=== PATIENT | female | born 1965 | race Caucasian/White ===

== ENCOUNTER → 2016-09-19 10:39 | Outpatient (CLI) | payer MEDICAID ==
[2016-06-05 15:31] VITALS: BMI 32.8
[~2016-09-19 10:39] MED LIST: ALBUTEROL2.5 MG/0.5 UPD; AMITRIPTYLINE100 MG PO; BAYER CHEWABLE81 MG PO; BENADRYL25 M1 PO; BENADRYL25 MG PO; BUTALB-ACETAMI1 EAC1 PO; BUTISOL SODIUM PO; CITRATE OF MAG300 ML PO; COUMADIN10 MG PO; COUMADIN2 MG PO; COUMADIN7.5 MG PO; DULCOLAX10 MG/SUPP RC; FLEXERIL10 MG PO; GLUCOPHAGE500 MG PO; LASIX20 MG PO; MOBIC7.5 MG PO; MUCINEX600 MG PO; NORCO 10/325 TA1 TA1 PO; PHENERGAN25 M1 PO; REQUIP1 MG PO; VENTOLIN HFA18 GM INH; XANAX0.5 MG PO; ZEBETA10 MG PO; ZIAC 10/6.25 MG1 TAB PO; [UNRECOGNIZED DRUG - OTHER]; [UNRECOGNIZED DRUG - OTHER]
== END ==
LOC: D.MRI 09-16 08:30
DX: R51 Headache (principal)

== ENCOUNTER 2016-12-13 14:52 | Observation (INO) | payer MEDICAID ==
[~2016-12-13] VITALS: Ht 165.1 cm; Wt 90.0 kg
--- NOTE | ~2016-12-13 | DS ---
PATIENT:MARSHA PEREZ :61 MEDICAL RECORD: [id number] DISCHARGE SUMMARY ADMISSION DATE: 12/13/16 DISCHARGE DATE: 12/14/16 DISCHARGE SUMMARY PROBLEM LIST: 1. Unstable angina. 2. Coronary artery disease. 3. PTCA stent LAD diagonal this admission. 4. Hyperlipidemia. 5. Hypertension. 6. Smoking history. 7. Noninsulin dependent diabetes. HOSPITAL COURSE: The patient presented with unstable angina. She was found to have significant disease of the left anterior descending diagonal and underwent successful percutaneous transluminal coronary angioplasty stent of the left anterior descending diagonal. POSTOPERATIVE COURSE: She was discharged home with the addition of Plavix to her medical regimen, no aspirin, and to continue her Coumadin. She will follow up with [facility] in one month. LAZARA BREEN MD CC: [id number] DICTATION DATE: 12/14/16 1500 LICENSED SURVEYOR: FLORENCE 12/16/16 1152 DIS IN 12/14/16 [facility] [address] [place] [address]
--- NOTE | ~2016-12-13 | OP ---
PATIENT NAME: MARSHA PEREZ MEDICAL RECORD: [id number] :61 LOCATION:D.M2 D.2116 ADMISSION DATE:12/13/16 SURGEON: LAZARA BREEN MD OPERATION DATE: 12/14/16 PROCEDURES: 1. PTCA stent LAD. 2. Left heart catheterization. 3. Selective coronary angiography. 4. Left ventriculogram. INDICATION: 1. Angina. 2. Coronary artery disease. PROCEDURE IN DETAIL: After informed consent was obtained and after detailed explanation of risks, benefits, as well as alternative therapies, the patient elected to proceed with angiogram and angioplasty. The right femoral area was prepped and draped in a normal sterile fashion. The right femoral artery was cannulated via modified Seldinger technique with placement of 6-Arabic sheath. All catheters exchanged through this sheath. FINDINGS: Left ventriculogram is performed in standard 30 degree ALBA view, reveals good cardiac wall motion throughout all segments. Overall ejection fraction 55%. SELECTIVE CORONARY ANGIOGRAPHY: 1. Left main is with no significant angiographic disease. 2. The left anterior descending has a previously placed stent proximally but no significant restenosis, however, there is a very large diagonal system that is as large or larger than the left anterior descending and there is 75% stenosis in this. 3. The left circumflex has mild irregularities but no flow-limiting stenosis. 4. The right coronary artery has mild irregularities but no flow-limiting stenosis. PTCA STENT OF THE LEFT ANTERIOR DESCENDING DIAGONAL: The stent used was a 2.5 X 18 millimeter BioFreedom stent. This was a 15 millimeter lesion and a 2.5 vessel. MEERA 3 flow before and after the intervention. There was 0% residual stenosis after the intervention. OVERALL IMPRESSION: Successful percutaneous transluminal coronary angioplasty stent of the left anterior descending diagonal going from 75% initial stenosis to 0% residual stenosis. LAZARA BREEN MD CC: [id number] DICTATION DATE: 12/14/16 1500 COMPUTER SYSTEMS TECHNICIAN: DM 12/16/16 1128 DIS IN 12/14/16 [id number] [place] [address]
--- NOTE | ~2016-12-13 | HEMODYNAMI ---
PATIENT:MARSHA PEREZ MEDICAL RECORD: [id number] : 61 LOCATION:[facility] D.2116 ADMISSION DATE: 12/13/16 Generatedon:12/14/201611:47 Patient name: MARSHA PEREZ Patient #: [id number] SSN: : 1965 Date of study: 12/14/2016 Page: Of Hemodynamic Procedure Report Patient Data Patient Demographics Procedure consent was obtained First Name: MARSHA Gender: Female Last Name: CHRIS : 1965 [facility] Initial: C Age: 51 year(s) Patient #: [id number] Race: Additional ID: [id number] Contact details Address: [address] [address] State: [place] City: [place] Zip code: [address] Admission Admission Data Admission Date: 12/13/2016 Admission Time: 16:18 Room #: D.2116 Height (in.): 65 BSA: 1.97 (m2) Height (cm.): 165.1 BMI: 33.02 (kg/m2) Weight (lbs.): 198.42 Weight (kg.): 90 Lab Results Lab Result Date: 12/14/2016 Lab Result Time: 0:00 Biochemistry Name Units Result Min Max BUN mg/dl 19 --(----)*- 7 18 CK-MB ng/ml 1.5 --(-*--)-- 0 3.6 Creatinine mg/dl 1 --(--*-)-- 0.6 1.3 Troponin l ng/ml 0.017 --(-*--)-- 0 0.06 CBC Name Units Result Min Max Hemoglobin g/dl 13.7 --(*---)-- 13.5 17.5 Coagulation Name Units Result Min Max INR units 1.19 --(----)*- 0.85 1.17 PT sec 15 --(---*)-- 11.6 15 Procedure Procedure Types Cath Procedure Diagnostic Procedure [facility] w/Coronaries PCI Procedure Coronary Stent Initial Miscellaneous Procedures Moderate Sedation up to 15 minutes Procedure Description Procedure Date Procedure Date: 12/14/2016 Procedure Start Time: 11:26 Procedure End Time: 11:47 Procedure Staff Name Function Oz Birch MD Performing Physician Andrzej Ospina RT Scrub Senthil Gill RN Nurse Zen Solis RT Monitor Procedure Data Cath Procedure Fluoroscopy Diagnostic fluoroscopy Total fluoroscopy Time: 2.2 time: 2.2 min min Diagnostic fluoroscopy Total fluoroscopy dose: 514 dose: 514 mGy mGy Contrast Material Contrast Material Type Amount (ml) Isovue 300 95 Entry Location Entry Primary Successful Side Size Upsize Upsize Entry Closure Succes sful Closure Location (Fr) 1 (Fr) 2 (Fr) Remarks Device Remarks Femoral Right 6 Fr Exoseal artery Short Estimated blood loss: 10 ml Diagnostic catheters Device Type Used For End Catheter Placement Cordis 5Fr Pigtail Procedure Catheter (MP) Cordis 5Fr JL 4.0 Procedure Catheter (MP) Cordis 5Fr 3DRC Catheter Procedure (MP) Procedure Complications No complications Procedure Medications Medication Administration Route Dosage Oxygen NC 2 l/min Lidocaine 2% added to field 20 Heparin Flush Bag added to field 2 bags (1000units/500ml NS) 0.9% NaCl I.V. 100 ml/hr Zofran I.V. 4 mg Versed I.V. 1 mg Dilaudid I.V. 1 mg Heparin Bolus I.V. 4000 units Integrilin (Bolus I.V. 7.9 ml 2mg/ml) Versed I.V. 1 mg Dilaudid I.V. 1 mg Plavix P.O. 600 mg Hemodynamics Rest BSA: 1.97 (m2) HGB: 13.7 (g/dl) O2 Consumption: Estimated: 188.48 (ml/min) O2 Co nsumption indexed: Estimated:95.68 (ml/min/m) Heart Rate: 67 (bpm) Snapshots Pre Cath Intra NCS Post Cath Vital Signs Time Heart Resp SPO2 etCO2 [id number] NIBP (mmHg) Rhythm Pain Sedation Rate (ipm) (%) (mmHg) (mmHg) Status Level (bpm) 11:17:48 69 23 95 0 0 134/76(104) NSR 0 (11) 10(A) , No pain 11:22:06 68 15 94 0 0 143/80(106) NSR 0 (11) 10(A) , No pain 11:26:22 67 16 95 0 0 118/77(103) NSR 0 (11) 9(A) , No pain 11:30:36 70 16 96 0 0 129/73(109) NSR 0 (11) 9(A) , No pain 11:34:48 72 17 95 0 0 126/74(103) NSR 0 (11) 9(A) , No pain 11:39:04 70 16 94 0 0 133/75(107) NSR 0 (11) 10(A) , No pain 11:41:47 74 17 93 0 0 122/69(89) NSR 0 (11) 10(A) , No pain 11:45:47 0 0 No Cuff NSR 0 (11) 10(A) , No pain Medications Time Medication Route Dose Verified Delivered Reason Not es Effectiveness by by 11:15:31 Oxygen NC 2 l/min Oz Buffie used for Queta Gill RN procedure 11:16:37 Lidocaine 2% added 20ml Oz Oz for local to vial Queta Birch MD anesthetic field 11:16:43 Heparin Flush added 2 bags Oz Oz used for Bag to Queta Birch MD procedure (1000units/500ml field NS) 11:16:53 0.9% NaCl I.V. 100ml/hr Oz Ndiaye Per physician Queta Gill RN 11:18:01 Zofran I.V. 4 mg Oz Ndiaye Per physician Queta Gill RN 11:20:00 Versed I.V. 1 mg Oz Ndiaye for sedation Queta Gill RN 11:21:12 Dilaudid I.V. 1 mg Oz Buffjoni for sedation Queta Gill RN 11:25:46 Versed I.V. 1 mg Oz Buffie for sedation Queta Gill RN 11:26:51 Dilaudid I.V. 1 mg Oz Buffjoni for sedation Queta Gill RN 11:30:23 Heparin Bolus I.V. 4000 Oz Buffie for luda ified units Queta Gill RN anticoagulation with dr birch 11:33:06 Integrilin I.V. 7.9 ml Oz Buffie for Was ruth ann (Bolus 2mg/ml) Queta Gill RN antiplatelet 2.1 ml therapy of vial 11:40:43 Plavix P.O. 600 mg Oz Gill RN antiplatelet therapy Procedure Log Time Note 10:35:34 Zen Solis RT(R) sent for patient. Start room use. 10:56:30 ACC Patient presents with Unstable Angina CCS Anginal Class 3--Marked limitation of physical activity, angina occurs with ordinary activity.. 10:56:32 Diagnostic Cath status Urgent 10:56:42 Time tracking: Regular hours 10:56:46 Plan of Care:Hemodynamics will remain stable., Cardiac rhythm will remain stable., Comfort level will be maintained., Respiratory function will remain adequate., Patient/ family verbilizes understanding of procedure., Procedure tolerated without complication., Recovers from procedure without complications.. 11:06:21 Patient received from PCU to CCL 1 Alert and oriented. Tansferred to table in Supine position. 11:06:22 Correct patient and procedure confirmed by team. 11:06:22 Warm blankets applied, and zane hugger turned on for patient comfort. 11:06:23 Signed procedure consent form obtained from patient. 11:06:24 ECG and BP/O2 sat monitors applied to patient. 11:15:31 Oxygen 2 l/min NC was administered by Senthil Gill RN; used for procedure; 11:16:35 Signed procedure consent form obtained from patient. 11:16:37 Lidocaine 2% 20ml vial added to field was administered by Oz Birch MD; for local anesthetic; 11:16:39 Vital chart was started 11:16:43 Heparin Flush Bag (1000units/500ml NS) 2 bags added to field was administered by Oz Birch MD; used for procedure; 11:16:44 Baseline sample Acquired. 11:16:48 Rhythm: sinus rhythm 11:16:50 Full Disclosure recording started 11:16:53 0.9% NaCl 100ml/hr I.V. was administered by Senthil Gill RN; Per physician; 11:17:37 H&P Date Dictated: 12/13/2016 H&P Addendum completed by physician on day of procedure. (MUST COMPLETE FOR ALL OUTPATIENTS). 11:17:45 Pre-procedure instructions explained to patient. 11:17:46 Pre-op teaching completed and patient verbalized understanding. 11:17:47 Family in waiting room. 11:17:49 Patient NPO since Midnight. 11:17:51 Is the patient allergic to Iodine/contrast media? No. 11:18:01 Zofran 4 mg I.V. was administered by Senthil Gill RN; Per physician; 11:18:18 Is patient on blood thinner?No 11:18:27 Patient diabetic? Yes. 11:18:30 If diabetic: On Metformin? Yes 11:18:34 If on Metformin: Last Dose? 12/10/2016 11:18:38 Previous problem with sedation/anesthesia? No ? 11:18:43 Snore? Yes 11:18:44 Sleep apnea? No 11:18:45 Deviated septum? No 11:18:46 Opens mouth fully? Yes 11:18:47 Sticks out tongue? Yes 11:18:48 Airway obstruction? No ? 11:18:54 Dentures? Yes IN 11:19:03 Pre procedure: right dorsailis pedis pulse 1+ Palpable, but thready & weak; easily obliterated 11:19:19 Pt opted for Femoral approach. 11:19:23 Patient pain scale 0/10 ?. 11:19:30 IV patent on arrival in right antecubital with 0.9% NaCl at [facility]. 11:19:32 Lab results completed and on chart. 11:19:36 Right groin area was prepped with chlora-prep and draped in sterile fashion 11:19:37 Alarms reviewed by R. N. 11:19:38 Sharps counted by scrub and verified by R.N. 11:19:40 --------ALL STOP TIME OUT------ 11:19:40 Final Timeout: patient, procedure, and site verified with staff and physician. All members of the team are in agreement. 11:19:42 Right groin site verified by team. 11:19:46 Physical assessment completed. ASA score P 2 - A patient with mild systemic disease as per Oz Birch MD. 11:19:49 Sedation plan: IV Moderate Sedation Versed, Fentanyl 11:20:00 Versed 1 mg I.V. was administered by Senthil Gill RN; for sedation; 11:21:12 Dilaudid 1 mg I.V. was administered by Senthil Gill RN; for sedation; 11:25:04 Use device set Femoral Dx 11:25:07 Acist Hand Control opened to sterile field. 11:25:07 Acist Manifold opened to sterile field. 11:25:09 Acist Syringe opened to sterile field. 11:25: Bag Decanter opened to sterile field. 11:25:09 Medline Cath Pack opened to sterile field. 11:25:10 St Abundio 260cm J .035 wire opened to sterile field. 11:25:11 Diagnostic Infinity 5Fr Multipack catheter opened to sterile field. 11:25:19 Terumo 6Fr [place] Sheath opened to sterile field. 11:25:46 Versed 1 mg I.V. was administered by Senthil Gill RN; for sedation; 11::51 Dilaudid 1 mg I.V. was administered by Senthil Gill RN; for sedation; 11::51 Procedure started. 11:26:56 Local anesthetic to right femoral artery with Lidocaine 2% by Oz Birch MD.INITIAL ACCESS ONLY 11:27:32 A 6 Fr Short sheath was inserted into the Right Femoral artery 11:27:55 A Cordis 5Fr Pigtail Catheter (MP) was advanced over the wire and used for Procedure. 11:28:13 LV angiography performed. 11:28:15 LV gram done using ALBA 11:28:22 EF : 60 % 11:28:27 Injector settings: Ml/sec: 10, Volume: 20, 11:28:29 Catheter removed. 11:28:56 A Cordis 5Fr JL 4.0 Catheter (MP) was advanced over the wire and used for Procedure. 11:29:31 LCA angiography performed. 11:30:23 Heparin Bolus 4000 units I.V. was administered by Senthil Gill RN; for anticoagulation; verified with dr birch 11:30:58 Catheter removed. 11:31:04 A Cordis 5Fr 3DRC Catheter (MP) was advanced over the wire and used for Procedure. 11:31:09 RCA angiography performed. 11:31:10 Catheter removed. 11:31:22 CyberArts BasixCompak Inflation Kit opened to sterile field. 11:31:25 Morales Whisper J 300cm 0.014 guide wire opened to sterile field. 11:32:11 Cordis 6FR XBLAD 3.5 guide catheter opened to sterile field. 11:32:31 ACC PCI Site: Diag1 has 75% stenosis. 11:32:33 ACC Pre-intervention MEERA Flow is 3. 11:32:39 6 Fr XBLAD 3.5 guide catheter was inserted over the wire 11:33:06 Integrilin (Bolus 2mg/ml) 7.9 ml I.V. was administered by Senthil Gill RN; for antiplatelet therapy; Wasted 2.1 ml of vial 11:33:13 Whisper wire advanced. 11:34:11 Wire advanced across lesion. 11:35:01 Inflation Number: 1 A Biofreedom 2.5 x 18 stent (No Cost Implant) was prepped and advanced across the 1st Diag. The stent was deployed at 13 TARIQ for 0:10 (min:sec). 11:35:32 ACC Post-intervention MEERA Flow is 3. 11:35:33 Stent catheter was removed intact over wire. 11:35:34 Wire removed. 11:35:34 Guide catheter removed. 11:36:00 Cordis 6Fr Exoseal opened to sterile field. 11:36:11 Sheath removed intact; hemostasis achieved with Exoseal to the Right Femoral artery. 11:36:16 Procedure ended.(Physican Out) 11:39:26 Fluoroscopy time 02.20 minutes. 11:39:36 Fluoroscopy dose: 514 mGy 11:39:36 Flurop Dose total: 514 11:39:41 Contrast amount:Isovue 300 95ml. 11:39:42 Sharps counted by scrub and verified by R.N. 11:39:45 Insertion/operative site no bleeding no hematoma. 11:39:48 Post-op/insertion site Right Femoral artery dressed using a Bandaid. 11:39:50 Post Procedure Pulses reassessed and unchanged 11:39:52 Post-procedure physical assessment completed. ASA score P 2 - A patient with mild systemic disease as per Oz Birch MD. 11:39:55 Post procedure rhythm: unchanged. 11:39:58 Estimated blood loss: 10 ml 11:40:00 Post procedure instruction explained to patient.Patient verbalizes understanding. 11:40:01 Patient needs reinforcement of post procedure teaching. 11:40:13 Procedure type changed to Cath procedure, Diagnostic procedure, LHC, LHC w/Coronaries, PCI procedure, Coronary Stent Initial, Miscellaneous Procedures, Moderate Sedation up to 15 minutes 11:40:15 Procedure and supply charges have been captured, reviewed, submitted and are correct. 11:40:18 Procedure Complication : No complications 11:40:43 Plavix 600 mg P.O. was administered by Senthil Gill RN; for antiplatelet therapy; 11:45:54 Lab Result : BUN 19 mg/dl 11:45:54 Lab Result : Troponin l 0.017 ng/ml 11:45:54 Lab Result : Hemoglobin 13.7 g/dl 11:45:54 Lab Result : Creatinine 1 mg/dl 11:45:54 Lab Result : CK-MB 1.5 ng/ml 11:45:54 Lab Result : INR 1.19 units 11:45:54 Lab Result : PT 15 sec 11:46:52 Patient Height : 65 cm 11:46:56 Patient Weight : 198.42 kg 11:47:07 Vital chart was stopped 11:47:07 See physician's report for complete and final results. 11:47:20 Report given to PCU. 11:47:26 Patient transfered to PCU with Bed. 11:47:29 Procedure ended. 11:47:29 Full Disclosure recording stopped 11:47:33 End room use (Document Last) Intervention Summary Intervention Notes Time ActionType Lesion and Equipment Action# Pressure Duration Attributes Used 11:35:[address] Place stent 1st Diag Biofreedom 1 13 00:10 2.5 x 18 stent (No Cost Implant) Device Usage Item Name Manufacture Quantity Catalog Hospital Part Current Minimal Lot# / Number Charge Number Stock Stock Serial# Code Acist Hand Acist 1 52879 [id number] [id number] [id number] 5 Control Medical Systems Inc Acist Acist 1 70110 686521 968421 390667 5 Manifold Medical Systems Inc Acist Acist 1 81012 823808 449265 214221 20 Syringe Medical Systems Inc Bag Microtek 1 2002S 755063 81900 932547 5 MedSolutions Inc. Medline Cardinal 1 [id number] 369418 59015 996518 [address] Abundio 1 113902 457230 522976 068560 30 260cm J .035 wire Diagnostic Cardinal 1 [id number] 162884 13459 631254 30 PlanStanity Health 5Fr Multipack catheter Terumo 6Fr Terumo 1 [id number] 844905 404356 363289 40 [place] Sheath Cordis 5Fr Cardinal 1 593508 5 Pigtail Health Catheter (MP) Cordis 5Fr Cardinal 1 320051 5 JL 4.0 Health Catheter (MP) Cordis 5Fr Cardinal 1 662081 5 3DRC Health Catheter (MP) [facility] 1 JY2441 770279 686716 639824 15 BasixCompak Medical Inflation Kit Morales Morales 1 [id number] 694942 373859 818563 5 Whisper J Vascular 300cm 0.014 guide wire Cordis 6FR Cardinal 1 [id number] 108985 192691 811249 10 XBLAD 3.5 Health guide catheter Biofreedom Biosensors 1 [facility]2-9768 861578 482701 5 [id number] 2.5 x 18 [place] SA stent (No Cost Implant) Cordis 6Fr Cardinal 1 EX600 418641 104788 447490 10 [facility] Citymapper Limited Signature Audit Red Bud Stage Time Signature Unsigned Intra-Procedure 12/14/2016 Zen Solis 11:47:50 AM RT(R) Signatures Monitor : Zen Solis RT Signature : Date : Time : [address] [address]
--- NOTE | ~2016-12-13 | HP ---
PATIENT: MARSHA PEREZ MEDICAL RECORD: [id number] ACCOUNT: [id number] LOCATION:[address] : [birth year] ADMISSION DATE: 12/13/16 HISTORY AND PHYSICAL EXAMINATION PROBLEM LIST: 1. Angina. 2. Coronary artery disease. 3. Previous percutaneous transluminal coronary angioplasty stent. 4. Coumadin anticoagulation. 5. Noninsulin dependent diabetes. 6. Hypertension. HISTORY OF PRESENT ILLNESS: This is a 51-year-old female with a past history of coronary artery disease with percutaneous transluminal coronary angioplasty stent approximately three to four years ago who presents with two days of crushing chest pain. She continued to have the chest pain here. It is just like that of her previous angina. Her troponin is normal. Her electrocardiogram is with nonspecific ST-T abnormalities. PHYSICAL EXAMINATION: HEAD, EYES, EARS, NOSE, AND THROAT: Benign. NECK: Supple. No jugular venous distention. Carotid upstroke plus two bilaterally without bruits. LUNGS: Overall clear to auscultation and percussion. HEART: Regular. Normal S1, normal S2. No S3, no S4. No murmurs. BONES, JOINTS, EXTREMITIES: No clubbing, cyanosis, or edema. OVERALL IMPRESSION: Chest pain compatible with angina escalated in an unstable fashion. We will check a PT/INR and proceed with coronary angiography when the PT/INR is lowered. LAZARA BREEN MD CC: [id number] DICTATION DATE: 12/14/16 1500 HIV/AIDS CARE NURSE: DM 12/16/16 1135 DIS IN 12/14/16 [facility] [address] [id number]
[~2016-12-13 14:52] MED LIST changes: +CYCLOBENZAPRINE10 MG PO; -FLEXERIL10 MG PO; +HYDROCODONE-APA1 TAB PO; -NORCO 10/325 TA1 TA1 PO
[2016-12-13 15:38] LABS: BASOPHILS 0.5 % (0-2); EOSINOPHILS 3.8 % (0-7); HEMATOCRIT 39.9 % (36.0-48.0); HEMOGLOBIN 13.7 g/dL (12-16); IMMATURE GRANULOCYTES 0.1 % (0-5); LYMPHOCYTES 42.1 % (15-50); MCH 32.1 pg (26.0-34.0); MCHC 34.3 g/dL (31.0-37.0); MCV 93.4 fL (80.0-100.0); MEAN PLATELET VOLUME 11.4 fL (7.4-10.4); MONOCYTES 6.8 % (2-11); NEUTROPHILS 46.7 % (40-80); PLATELET COUNT 232 10x3/uL (130-400); RBC 4.27 10x6/uL (4.00-5.40); RDW 12.8 % (11.5-14.5); WBC 8.8 10x3/uL (4.8-10.8)
[2016-12-13 15:52] LABS: ALBUMIN 4.1 g/dL (3.4-5.0); ALKALINE PHOSPHATASE 115 U/L (46-116); ALT (SGPT) 41 U/L (10-68); BILIRUBIN - TOTAL 0.56 mg/dL (0.2-1.3); CALC OSMOLALITY 285 mosm/kg (275-300); CALCIUM 9.1 mg/dL (8.5-10.1); CARBON DIOXIDE 24.8 mmol/L (21.0-32.0); CHLORIDE - SERUM 104 mmol/L (98-107); GLUCOSE 147 mg/dL (74-106); PROTEIN - SERUM 8.6 g/dL (6.4-8.2); SODIUM 141 mmol/L (136-145); UREA NITROGEN 19 mg/dL (7-18); eGFR NON AFRICAN AMERICAN 61 mL/min (90-120)
[2016-12-13 16:03] LABS: CKMB 1.5 U/L (0.0-3.6); CREATINE KINASE 104 UL (21-215)
[2016-12-13 16:04] LABS: TROPONIN-I < 0.017 ng/mL (0.000-0.060)
--- NOTE | 2016-12-13 18:06 | NUR ---
PT RECEIVED TO ROOM 2115 VIA STRETCHER, PT AMBULATED TO BED, STEADY GATE. PT ORIENTED TO ROOM AND CALL LIGHT, PT STATES THAT SHE IS STILL HAVING CHEST PAIN, FEELINGS LIKE AN ELEPHANT IS SITTING ON HER CHEST. PAGED DR. BREEN FOR ORDERS FOR PAIN MED. NS STARTED INFUSING AT 50CC/HR TO RIGHT AC. PT DENIES ANY OTHER NEEDS AT THIS TIME. CALL LIGHT IN REACH, DAUGTHER AT BEDSIDE, NAD NOTED, WILL CONTINUE TO MONITOR.
--- NOTE | 2016-12-13 18:38 | NUR ---
RECEIVED CALL BACK FROM DR. BREEN. INFORMED HIM THAT PT IS STILL HAVING CHEST PAIN AND NO PAIN MEDS ORDER. INFORMED HIM ABOUT PT'S ALLERGIES. DR. BREEN STATED TO ORDER DEMEROL 50MG Q4HPRN.
[2016-12-13] MEDS ORDERED: OMEPRAZOLE40 MG PO (18:49)
[2016-12-13 20:00] VITALS: BP 104/61
--- NOTE | 2016-12-13 20:30 | NUR ---
PT STATES USUALLY SHE TAKES METFORMIN AT NIGHT. EXPLAINED TO PT WE WOULD HOLD THE METFORMIN TONIGHT UNTIL DR BREEN EVALUATED HER CHEST PAIN. PT VERBALIZED UNDERSTANDING, BUT WAS CONCERNED HER GLUCOSE WOULD ELEVATE TO > 600. PT STARTED ON ACCU CHECKS AC/HS. GLUCOSE NOW 196. PT STATES SHE WAS NOT HUNGRY RIGHT NOW AND DID NOT WANT INSULIN TONIGHT. WILL CONT TO MONITOR.
[2016-12-13 22:25] VITALS: Ht 165.1 cm; Wt 90.0 kg
[2016-12-14] VITALS: BP 103/56
[2016-12-14 04:00] VITALS: BP 99/62
[2016-12-14 08:04] VITALS: BP 99/58
[2016-12-14 09:12] LABS: INR 1.19 (0.85-1.17)
--- NOTE | 2016-12-14 09:27 | NUR ---
TELEMETRY SR. CONSENTS SIGNED FOR [facility]. PRE-OPS GIVEN. WILL CONT. PLAN OF CARE.
--- NOTE | 2016-12-14 11:00 | NUR ---
PRE-OPS GIVEN. TO MD PSYCHIATRY BY BED.
[2016-12-14 12:00] VITALS: BP 128/68
--- NOTE | 2016-12-14 12:03 | NUR ---
BACK FROM labor mediator. VS WNL. RIGHT GROIN STABLE WITHOUT BLEEDING OR HEMATOMA NOTED. WILL MONITOR.
--- NOTE | 2016-12-14 12:12 | NUR ---
FEMSTOP DCD WITHOUT BLEEDING OR HEMATOMA NOTED. WILL MONITOR.
--- NOTE | 2016-12-14 15:45 | NUR ---
BED REST UP. GROIN STABLE.
[2016-12-14 16:00] VITALS: BP 143/69
[2016-12-14] MEDS ORDERED: PLAVIX75 MG PO (16:33)
--- NOTE | 2016-12-14 16:58 | NUR ---
IV AND TYELEMETRY DCD. DC PLANS GIVEN. UNDERSTANDING VOICED. ESCORTED TO CAR BY W/C.
== END 2016-12-14 17:05 | disposition home or self-care (01) ==
LOC: D.ER 14:52 → OBSVTIME 16:18 → D.M2 16:18
PROVIDERS: Emergency Medicine; ADMIT Internal Medicine Interventional Cardiology
DX: I25.110 Atherosclerotic heart disease of native coronary artery with unstable angina pectoris (principal); Z95.5 Presence of coronary angioplasty implant and graft; Z86.718 Personal history of other venous thrombosis and embolism; Z79.01 Long term (current) use of anticoagulants; Z72.0 Tobacco use; Z00.6 Encounter for examination for normal comparison and control in clinical research program

== ENCOUNTER → 2016-12-24 10:50 | Outpatient (CLI) | payer MEDICAID ==
[2016-12-13 22:25] VITALS: BMI 31.5
[~2016-12-24 10:50] MED LIST changes: +OMEPRAZOLE40 MG PO; +PLAVIX75 MG PO
== END | disposition home or self-care (01) ==
LOC: D.RAD 10:50
DX: M47.897 Other spondylosis, lumbosacral region (principal); G25.81 Restless legs syndrome; M25.561 Pain in right knee; M17.11 Unilateral primary osteoarthritis, right knee; M76.9 Unspecified enthesopathy, lower limb, excluding foot; G43.709 Chronic migraine without aura, not intractable, without status migrainosus; M46.92 Unspecified inflammatory spondylopathy, cervical region; G89.4 Chronic pain syndrome; Z79.899 Other long term (current) drug therapy; Z79.891 Long term (current) use of opiate analgesic

== ENCOUNTER 2017-02-18 15:47 | Observation (INO) | payer MEDICAID ==
[~2017-02-18] VITALS: Ht 165.1 cm; Wt 79.5 kg
[2017-02-18 16:06] LABS: BASOPHILS 0.3 % (0-2); EOSINOPHILS 2.4 % (0-7); HEMATOCRIT 37.9 % (36.0-48.0); HEMOGLOBIN 12.8 g/dL (12-16); IMMATURE GRANULOCYTES 0.1 % (0-5); LYMPHOCYTES 36.8 % (15-50); MCH 31.1 pg (26.0-34.0); MCHC 33.8 g/dL (31.0-37.0); MEAN PLATELET VOLUME 10.7 fL (7.4-10.4); NEUTROPHILS 53.4 % (40-80); PLATELET COUNT 232 10x3/uL (130-400); RBC 4.12 10x6/uL (4.00-5.40); RDW 13.3 % (11.5-14.5); WBC 9.6 10x3/uL (4.8-10.8)
[2017-02-18 16:21] LABS: ALBUMIN 3.8 g/dL (3.4-5.0); ALKALINE PHOSPHATASE 132 U/L (46-116); ALT (SGPT) 72 U/L (10-68); BILIRUBIN - TOTAL 0.26 mg/dL (0.2-1.3); CALC OSMOLALITY 281 mosm/kg (275-300); CALCIUM 8.5 mg/dL (8.5-10.1); CARBON DIOXIDE 23.8 mmol/L (21.0-32.0); CHLORIDE - SERUM 106 mmol/L (98-107); CREATININE - SERUM 0.7 mg/dL (0.6-1.3); POTASSIUM - SERUM 3.9 mmol/L (3.5-5.1); PROTEIN - SERUM 8.5 g/dL (6.4-8.2); SODIUM 142 mmol/L (136-145); UREA NITROGEN 12 mg/dL (7-18); eGFR NON AFRICAN AMERICAN > 90 mL/min (90-120)
[2017-02-18 16:23] LABS: GLUCOSE 88 mg/dL (74-106)
[2017-02-18 16:32] LABS: CHOL - HDL RATIO 4.3 ratio (2.3-4.1); CHOLESTEROL, TOTAL 190 mg/dL (0-200); CKMB 1.2 U/L (0.0-3.6); CREATINE KINASE 95 UL (21-215); HDL CHOLESTEROL 44 mg/dL (32-96); LDL CHOLESTEROL 116 mg/dL (0-100); LDL-HDL RATIO 2.6 ratio (1.5-3.5); TRIGLYCERIDE 152 mg/dL (30-200)
[2017-02-18 16:33] LABS: TROPONIN-I < 0.017 ng/mL (0.000-0.060)
[2017-02-18 17:19] LABS: INR 1.01 (0.85-1.17); PROTIME 13.2 SECONDS (11.6-15.0)
--- NOTE | 2017-02-18 20:15 | NUR ---
RECEIVED PT IN BED AAOX4 RESP UNLABORED C/O CHEST PAIN 12/16 C/O BENITEZ FROM NITRO 03/18 SKIN W/D COLOR WNL TELEMETRY SR 76 SALINE LOCK INTACT TO RAC WITH OCCLUSIVE DRSG SITE FREE OF REDNESS OR EDEMA NAD NOTED
[2017-02-18] MEDS ORDERED: KLONOPIN1 MG PO (20:41)
[2017-02-18] MEDS ORDERED: ALBUTEROL2.5 MG/3 M INH (20:42)
[2017-02-18] MEDS ORDERED: ATROVENT 0.02%2.5 ML UPD (20:43)
[2017-02-18 22:13] VITALS: BP 117/56; Ht 165.1 cm; Wt 79.5 kg
--- NOTE | 2017-02-19 02:28 | NUR ---
RESTING QUIETLY EYES CLOSED RESP UNLABORED NAD NOTED
[2017-02-19 04:00] VITALS: BP 90/42
[2017-02-19 12:00] VITALS: BP 108/69
--- NOTE | 2017-02-19 12:41 | NUR ---
ALERT AND ORIENTED X4. DC RT AC IV TIP INTACT. DISCHARGE INSTRUCTIONS GIVEN VERBALLY AND WRITTEN. DISCHARGE PAPERS SIGNED ON CHART. ESCORT TO RIDE VIA WHEELCHAIR. REMAINS FREE FROM INJURY.
--- NOTE | 2017-02-20 12:22 | DS ---
PATIENT:MARSHA PEREZ :61 MEDICAL RECORD: [id number] DISCHARGE SUMMARY ADMISSION DATE: 02/18/17 DISCHARGE DATE: 02/19/17 DISCHARGE DIAGNOSES: 1. Noncardiac chest pain. 2. Coronary artery disease. 3. Previous percutaneous transluminal coronary angioplasty stent. 4. Gastroesophageal reflux disease. HOSPITAL COURSE: Ms. Perez had chest pain after throwing up. Her troponin is normal. Her EKGs were normal. She continued to have the chest pain and became positional. She has had a history of a pulled muscle after throwing up in the past with the chest pain now being positional, sharp to touch, it is noncardiac in etiology. No other cardiac workup or treatment is necessary at this time. TRANSINT:[id number] Voice Confirmation ID: [id number] DOCUMENT ID: [id number] LAZARA BREEN MD at 1222 CC: [id number] DICTATION DATE: 02/19/17 1031 RF ENGINEER: 02/20/17 0014 DEP CLI 02/19/17 [address] [place] [address]
--- NOTE | 2017-02-20 12:22 | HP ---
PATIENT: MARSHA PEREZ MEDICAL RECORD: [id number] ACCOUNT: [id number] LOCATION:[facility] : 61 ADMISSION DATE: 02/18/17 HISTORY AND PHYSICAL EXAMINATION ADMITTING DIAGNOSES: 1. Chest pain. 2. Gastroesophageal reflux disease. 3. Nausea and vomiting. 4. Gastroenteritis. 5. Coronary artery disease. 6. Previous percutaneous transluminal coronary angioplasty stent. HISTORY OF PRESENT ILLNESS: Mrs. Perez presents with chest pain. Her chest pain; however, is different than that of her previous angina. Her chest pain came on her after throwing up, is more like her GERD pain. She continues to have the chest pain, is quite severe. Her EKG is with no changes. Last cardiac stenting was approximately 2 months ago. PHYSICAL EXAMINATION: GENERAL APPEARANCE: Well-nourished, well-developed, appears stated age. Level of distress, comfortable. PSYCHIATRIC: Mental status, alert, normal affect. Orientation, oriented to time, place and person. EYES: Lids and conjunctiva, noninjected. No discharge, no pallor. ENT: Lips, teeth, gums, normal dentition. Oropharynx, no cyanosis, no pallor. NECK: Carotid arteries, bilateral normal upstroke, no bruits, no thrills. JUGULAR VEINS: No jugular venous pressure or distention. CERVICAL LYMPH NODES: Nontender, nonenlarged. THYROID: Not enlarged. Nontender. No nodules. LUNGS: Respiratory effort, unlabored. CHEST: Normal curvature. No thoracic deformity. No chest wall tenderness. Percussion, resonant. Auscultation, clear. No wheezes, no rales, no rhonchi. CARDIOVASCULAR: Precordial exam, nondisplaced. No heaves or pericardial thrills. Rate and rhythm, regular. Heart sounds, normal S1, normal S2. No S3, no gallop, no rub. Systolic murmur, not heard. Diastolic murmur, not heard. EXTREMITIES: No cyanosis, no edema. Peripheral pulses, full and equal in all extremities, except as noted. No bruits appreciated. ABDOMEN: Soft, nondistended. Normal aorta. No bruit. Nontender. No masses. Liver, nontender, no hepatomegaly. Spleen, nontender, no splenomegaly. MUSCULOSKELETAL: No joint tenderness. No joint swelling. No erythema. NEUROLOGICAL: Normal gait, normal strength, normal tone. SKIN: Warm and dry. REVIEW OF SYSTEMS: The patient reports easy bruising but reports no swollen glands. The patient reports no fever, no night sweats, no significant weight gain, no significant weight loss. No significant exercise tolerance. The patient reports no dry eyes, no irritation, no vision change. Patient reports no difficulty hearing and no ear pain. Patient reports no frequent nose bleeds or nose and sinus problems. Patient reports on arm pain on exertion. No shortness of breath while lying down. No history of heart murmur. Patient reports no cough, no wheezing or coughing up blood. Patient reports no abdominal pain, no vomiting. Normal appetite. No diarrhea and not vomiting blood. No nausea and no constipation. Patient reports no incontinence. No difficulty urinating. No hematuria. No increased frequency. Patient reports HISTORY AND PHYSICAL [id number] MARSHA PEREZ no muscle aches. No weakness, no arthralgias, no back pain. No swelling of the extremities. Patient reports no abnormal mole, no jaundice, no rashes. Reports no loss of consciousness. No weakness and no numbness. No seizures, dizziness, or headaches. The patient reports no depression, no sleep disturbance, feeling safe in a relationship and no alcohol abuse. Patient reports on fatigue. Reports no runny nose or sinus pressure. No itching, no hives, and no frequent sneezing. OVERALL IMPRESSION: Chest pain is most likely GI in etiology from throwing up, doubt that this is cardiac in etiology. We will check a troponin in the morning, but do gastrointestinal directed therapy at this time. TRANSINT:[id number] Voice Confirmation ID: [id number] DOCUMENT ID: [id number] LAZARA BREEN MD at 1222 CC: [id number] DICTATION DATE: 02/18/17 1639 [employer]IATE: 02/18/17 1740 DEP CLI 02/19/17 [id number] [place] [address]
== END 2017-02-19 13:00 | disposition home or self-care (01) ==
LOC: D.M2 15:47 → D.OPS 15:47 → D.ER 15:47 → D.M2 16:38 → OBSVTIME 16:38 → EDSTATUS 17:33 → D.OPS 17:34 → D.M2 17:34 → D.OPS 02-19 13:00 → D.M2 02-19 13:00 → EDSTATUS 02-21 16:01
PROVIDERS: Emergency Medicine; ADMIT Internal Medicine Interventional Cardiology
DX: R07.89 Other chest pain (principal); I25.10 Atherosclerotic heart disease of native coronary artery without angina pectoris; K21.9 Gastro-esophageal reflux disease without esophagitis; Z95.5 Presence of coronary angioplasty implant and graft; I10 Essential (primary) hypertension; K52.9 Noninfective gastroenteritis and colitis, unspecified

== ENCOUNTER → 2017-06-17 10:40 | Outpatient (CLI) | payer MEDICAID ==
[2017-02-18 22:13] VITALS: BMI 29.1
[~2017-06-17 10:40] MED LIST changes: +ALBUTEROL2.5 MG/3 M INH; +ASPIRIN EC81 M1 PO; +ATROVENT 0.02%2.5 ML UPD; +BUTALBITAL-ASP-1 CAP PO; -COUMADIN7.5 MG PO; +DILAUDID2 MG PO; +KLONOPIN1 MG PO; +ZANTAC150 MG PO; +ZIAC 10-6.25 MG1 TAB PO
== END | disposition home or self-care (01) ==
LOC: D.MRI 10:40
DX: M25.561 Pain in right knee (principal)

== ENCOUNTER 2017-07-01 05:29 | Day surgery (SDC) | payer MEDICAID ==
[2017-06-30 15:32] LABS: BASOPHILS 0.3 % (0-2); EOSINOPHILS 2.6 % (0-7); HEMATOCRIT 34.4 % (36.0-48.0); HEMOGLOBIN 11.5 g/dL (12-16); IMMATURE GRANULOCYTES 0.1 % (0-5); MCH 30.7 pg (26.0-34.0); MCHC 33.4 g/dL (31.0-37.0); MEAN PLATELET VOLUME 10.8 fL (7.4-10.4); MONOCYTES 8.9 % (2-11); NEUTROPHILS 47.1 % (40-80); PLATELET COUNT 199 10x3/uL (130-400); RBC 3.74 10x6/uL (4.00-5.40); RDW 13.2 % (11.5-14.5); WBC 7.4 10x3/uL (4.8-10.8)
[2017-06-30 15:39] LABS: INR 1.12 (0.85-1.17)
[2017-06-30 15:40] LABS: CALC OSMOLALITY 278 mosm/kg (275-300); CALCIUM 8.7 mg/dL (8.5-10.1); CARBON DIOXIDE 25.6 mmol/L (21.0-32.0); CHLORIDE - SERUM 103 mmol/L (98-107); CREATININE - SERUM 0.7 mg/dL (0.6-1.3); POTASSIUM - SERUM 3.6 mmol/L (3.5-5.1); SODIUM 138 mmol/L (136-145); UREA NITROGEN 13 mg/dL (7-18); eGFR NON AFRICAN AMERICAN > 90 mL/min (90-120)
[2017-06-30 15:44] LABS: GLUCOSE 153 mg/dL (74-106)
[~2017-07-01] VITALS: Ht 165.1 cm; Wt 70.3 kg
--- NOTE | ~2017-07-01 | OP ---
PATIENT NAME: MARSHA PEREZ MEDICAL RECORD: [id number] :61 LOCATION:[facility] ADMISSION DATE: SURGEON: TON MARTINEZ DO DATE OF OPERATION: 07/01/2017 PROCEDURE PERFORMED: Right knee arthroscopy with partial medial meniscectomy. PREOPERATIVE DIAGNOSIS: Right knee medial meniscal tear. POSTOPERATIVE DIAGNOSIS: Right knee medial meniscal tear. INDICATIONS: Ms. Perez is a 52-year-old female that had locking, catching, and popping of her right knee for some time. She got x-rays and MRI, which demonstrated a posterior horn medial meniscus tear. Due to her age, discussion was had with her that she may have some arthritis, but due to her symptoms, she may benefit from a knee scope and medial meniscectomy or partial meniscectomy. She agreed to this. SURGEON: Ton Martinez DO COMPLICATIONS: None. BLOOD LOSS: Minimal. DESCRIPTION OF PROCEDURE: The patient was taken to the operative suite, laid in supine position. After she was taken to the operative suite and the right lower extremity was prepped and draped in sterile fashion, she was given a gram of vancomycin preoperatively. A timeout was performed and everyone was in agreement to the correct side, site, and patient. Once she had been prepped and draped, the lateral portal was established first with the knee flexed with an 11 blade and then the trocar was entered into the knee. The camera was then entered and the water was turned on. Inspection of the knee then began in the suprapatellar pouch. There were no loose bodies seen there or any abnormalities. The patella seemed to be intact with no chondromalacia. The lateral and medial gutters were also inspected and again no loose bodies or foreign objects were seen in the knee. After checking the medial gutter, the knee was flexed and the medial meniscal tear of the posterior horn was encountered. The medial portal was then established with first an 18-gauge spinal needle and then 11-blade scalpel. The meniscal tear was bite out with a straight biter and also a shaver. There was no chondromalacia noted on the medial femoral condyle or the medial tibial plateau. The ACL was then probed and seen to be in good position and taut. The knee was in [id number] and the lateral compartment was entered. No chondromalacia was noted on the cartilage and the lateral meniscus was seen to be intact and there were no tears in it. Once this was noted, the knee was brought back into extension and the scope was put in the suprapatellar pouch and inspected again for any loose bodies and none were seen and the water was turned off, suction was turned on to remove the excess water out of the knee and the trocar and everything, the camera was removed from the knee at that time. After this was done, the portal sites were closed with 4-0 Monocryl in inverted interrupted fashion and then Steri-Strips were placed over that. An Adaptic, 4 x 4s, AND, Webril, and Jalen wrap were placed over the knee and a SHAE hose was placed up to the knee. The patient was awakened and taken to recovery room in stable condition. TRANSINT:[id number] Voice Confirmation ID: [id number] DOCUMENT ID: [id number] OPERATIVE REPORT [id number] MARSHA PEREZ MICHAEL D, DO at 0814 CC: [id number] DICTATION DATE: 07/01/17 1516 [facility]: 07/01/17 1554 [facility] 07/01/17 [facility] [address] [place] [address]
[~2017-07-01 05:29] MED LIST changes: -DILAUDID2 MG PO
[2017-07-01 11:57] VITALS: BP 126/75; Ht 165.1 cm; Wt 70.3 kg
[2017-07-01] MEDS ORDERED: DILAUDID2 MG PO (15:08)
== END 2017-07-01 17:50 | disposition home or self-care (01) ==
LOC: D.OPS 05:29 → D.PAN 13:15 → D.OPS 13:15 → D.PAN 14:00 → D.OPS 17:50
PROVIDERS: Anesthesiology
DX: S83.231A Complex tear of medial meniscus, current injury, right knee, initial encounter (principal); I10 Essential (primary) hypertension; I25.10 Atherosclerotic heart disease of native coronary artery without angina pectoris; E11.9 Type 2 diabetes mellitus without complications; K21.9 Gastro-esophageal reflux disease without esophagitis; K44.9 Diaphragmatic hernia without obstruction or gangrene; J44.9 Chronic obstructive pulmonary disease, unspecified; Z87.891 Personal history of nicotine dependence; Z01.812 Encounter for preprocedural laboratory examination

== ENCOUNTER 2017-09-03 18:02 | Emergency (ER) | payer MEDICAID ==
[2017-07-01 11:57] VITALS: BMI 25.8
[~2017-09-03 18:02] MED LIST changes: +DILAUDID2 MG PO
[2017-09-03 18:51] LABS: BASOPHILS 0.1 % (0-2); EOSINOPHILS 0.1 % (0-7); HEMATOCRIT 35.9 % (36.0-48.0); HEMOGLOBIN 12.5 g/dL (12-16); IMMATURE GRANULOCYTES 0.4 % (0-5); LYMPHOCYTES 22.9 % (15-50); MCH 31.3 pg (26.0-34.0); MCHC 34.8 g/dL (31.0-37.0); MCV 89.8 fL (80.0-100.0); MEAN PLATELET VOLUME 11.9 fL (7.4-10.4); MONOCYTES 7.6 % (2-11); NEUTROPHILS 68.9 % (40-80); PLATELET COUNT 230 10x3/uL (130-400); RDW 13.6 % (11.5-14.5); WBC 19.7 10x3/uL (4.8-10.8)
[2017-09-03 19:00] LABS: APPEARANCE CLEAR (CLEAR); BILIRUBIN NEGATIVE (NEGATIVE); COLOR YELLOW (YELLOW); GLUCOSE NEGATIVE (NEGATIVE); KETONE MODERATE mg/dL (NEGATIVE); NITRITE NEGATIVE (NEGATIVE); PROTEIN NEGATIVE (NEGATIVE); SPECIFIC GRAVITY 1.015 (1.005-1.020); UROBILINOGEN NORMAL (NORMAL)
[2017-09-03 19:19] LABS: ALBUMIN 3.8 g/dL (3.4-5.0); ALKALINE PHOSPHATASE 120 U/L (46-116); ALT (SGPT) 35 U/L (10-68); BILIRUBIN - TOTAL 0.77 mg/dL (0.2-1.3); CALC OSMOLALITY 274 mosm/kg (275-300); CALCIUM 8.8 mg/dL (8.5-10.1); CARBON DIOXIDE 23.5 mmol/L (21.0-32.0); CHLORIDE - SERUM 102 mmol/L (98-107); CREATININE - SERUM 0.7 mg/dL (0.6-1.3); POTASSIUM - SERUM 4.1 mmol/L (3.5-5.1); PROTEIN - SERUM 9.2 g/dL (6.4-8.2); SODIUM 138 mmol/L (136-145); UREA NITROGEN 9 mg/dL (7-18); eGFR NON AFRICAN AMERICAN > 90 mL/min (90-120)
[2017-09-03 19:24] LABS: GLUCOSE 105 mg/dL (74-106)
[2017-09-03 19:27] LABS: CREATINE KINASE 127 UL (21-215)
[2017-09-03 19:28] LABS: TROPONIN-I < 0.017 ng/mL (0.000-0.060)
== END 2017-09-03 22:10 | disposition home or self-care (01) ==
LOC: D.ER 18:02
PROVIDERS: Emergency Medicine
DX: R33.9 Retention of urine, unspecified (principal); M54.5 Low back pain; I10 Essential (primary) hypertension; C85.90 Non-Hodgkin lymphoma, unspecified, unspecified site

== ENCOUNTER 2017-09-23 14:21 | Outpatient (CLI) | payer MEDICAID ==
[2017-07-01 11:57] VITALS: BMI 25.8
== END 2017-09-23 14:22 | disposition home or self-care (01) ==
LOC: D.MAMMO 14:21
DX: Z12.31 Encounter for screening mammogram for malignant neoplasm of breast (principal)

== ENCOUNTER 2017-12-31 08:21 | Outpatient (CLI) | payer MEDICAID ==
[~2017-12-31] VITALS: Ht 165.1 cm; Wt 82.7 kg
--- NOTE | ~2017-12-31 | HEMODYNAMI ---
PATIENT:MARSHA PEREZ MEDICAL RECORD: [id number] : 61 LOCATION:[facility] ADMISSION DATE: 12/31/17 Generatedon:12/31/201711:17 Patient name: MARSHA PEREZ Patient #: [id number] SSN: : 1965 Date of study: 12/31/2017 Page: Of Hemodynamic Procedure Report Patient Data Patient Demographics Procedure consent was obtained First Name: MARSHA Gender: Female Last Name: CHRIS : 1965 [facility] Initial: C Age: 52 year(s) Patient #: [id number] Race: Additional ID: [id number] Contact details [address]: [address] [place] [address] State: [place] City: [place] Zip code: [address] Past Medical History Allergies Allergen Reaction Date Comments Reported Other allergy 12/31/2017 ANSAID, IMTREX, IODINE, MORPHINE, NAPROXEN, PCN, PERCOCET, TORADOL, TYLOX, ULTRAM Admission Admission Data Admission Date: 12/31/2017 Admission Time: 8:21 Lab Results Lab Result Date: 12/31/2017 Lab Result Time: 9:30 Biochemistry Name Units Result Min Max BUN mg/dl 10 --(-*--)-- 7 18 Creatinine mg/dl 0.7 --(*---)-- 0.6 1.3 CBC Name Units Result Min Max Hematocrit % 35.7 *-(----)-- 42 54 Hemoglobin g/dl 12.4 *-(----)-- 13.5 17.5 Procedure Procedure Types Cath Procedure Diagnostic Procedure LHC LHC w/Coronaries Procedure Description Procedure Date Procedure Date: 12/31/2017 Procedure Start Time: 11:06 Procedure End Time: 11:15 Procedure Staff Name Function Oz Birch MD Performing Physician Segun Alvarado RT Monitor Senthil Gill RN Nurse Silke Taylor RT Scrub Procedure Data Cath Procedure Fluoroscopy Diagnostic fluoroscopy Total fluoroscopy Time: 0.7 time: 0.7 min min Diagnostic fluoroscopy Total fluoroscopy dose: 349 dose: 349 mGy mGy Contrast Material Contrast Material Type Amount (ml) Isovue 300 57 Entry Location Entry Primary Successful Side Size Upsize Upsize Entry Closure Succes sful Closure Location (Fr) 1 (Fr) 2 (Fr) Remarks Device Remarks Femoral Right 5 Fr Exoseal artery Estimated blood loss: 5 ml Diagnostic catheters Device Type Used For End Catheter Placement MULTIPACK Pigtail 5 Fr Procedure catheter MULTIPACK JL 4.0 5Fr Procedure catheter MULTIPACK 3DRC 5Fr Procedure catheter Procedure Complications No complications Procedure Medications Medication Administration Route Dosage Oxygen NC 2 l/min Zofran I.V. 4 mg Lidocaine 2% added to field 20 Heparin Flush Bag added to field 2 bags (1000units/500ml NS) 0.9% NaCl I.V. 100 ml/hr Versed I.V. 1 mg Dilaudid I.V. 1 mg Dilaudid I.V. 1 mg Versed I.V. 1 mg Versed I.V. 2 mg Hemodynamics Rest HGB: 12.4 (g/dl) Heart Rate: 103 (bpm) Pressure Samples Time Site Value (mmHg) Purpose Heart Use Rate(bpm) 11:07 LV 121/12,12 Snapshot 105 11:08 AO 103/71(83) Snapshot 104 Snapshots Pre Cath Intra NCS Post Cath Vital Signs Time Heart Resp SPO2 etCO2 NIBP (mmHg) Rhythm Pain Sedation Rate (ipm) (%) (mmHg) Status Level (bpm) 10:50:51 101 38 92 20 134/71(110) NSR 0 (11) 10(A) , No pain 10:55:03 101 29 94 22.5 139/80(108) NSR 0 (11) 10(A) , No pain 10:59:19 102 15 95 24 143/76(99) NSR 0 (11) 10(A) , No pain 11:03:31 103 14 93 19 135/75(102) NSR 0 (11) 10(A) , No pain 11:08:28 104 16 94 30 121/67(95) NSR 0 (11) 10(A) , No pain 11:12:36 105 14 95 19 126/78(97) NSR 0 (11) 10(A) , No pain Medications Time Medication Route Dose Verified Delivered Reason Notes Effe ctiveness by by 10:53:32 Oxygen NC 2 Oz Ndiaye used for l/min Queta Gill RN procedure 10:53:39 Zofran I.V. 4 mg Ozquiana Oliverie Per Queta Gill RN physician 10:55:09 Lidocaine 2% added 20ml Oz Oz for local to vial Queta Birch MD anesthetic field 10:55:14 Heparin Flush added 2 Oz Oz used for Bag to bags Queta Birch MD procedure (1000units/500ml field NS) 10:55:22 0.9% NaCl I.V. 100 Oz Buffie Per ml/hr Queta Gill RN physician 11:03:36 Versed I.V. 1 mg Oz Oliverie for Queta Gill RN sedation 11:03:45 Dilaudid I.V. 1 mg Oz Oliverie for Queta Gill RN sedation 11:06:16 Dilaudid I.V. 1 mg Oz Oliverie for Queta Gill RN sedation 11:06:20 Versed I.V. 1 mg Oz Oliverie for Queta Gill RN sedation 11:10:28 Versed I.V. 2 mg Oz Buffie for Queta Gill RN sedation Procedure Log Time Note 10:30:44 Time tracking: Regular hours (M-F 7:00 - 5:00) 10:30:48 Plan of Care:Hemodynamics will remain stable., Cardiac rhythm will remain stable., Comfort level will be maintained., Respiratory function will remain adequate., Patient/ family verbilizes understanding of procedure., Procedure tolerated without complication., Recovers from procedure without complications.. 10:30:53 Senthil Gill RN sent for patient. Start room use. 10:44:03 Patient received from Pre/Post Procedure Room to CCL 2 Alert and oriented. Tansferred to table in Supine position. 10:44:04 Warm blankets applied, and zane hugger turned on for patient comfort. 10:44:05 Correct patient and procedure confirmed by team. 10:44:06 Signed procedure consent form obtained from patient. 10:44:07 ECG and BP/O2 sat monitors applied to patient. 10:44:09 Pre-procedure instructions explained to patient. 10:44:09 Pre-op teaching completed and patient verbalized understanding. 10:44:10 Family in waiting room. 10:44:12 Patient NPO since Midnight. 10:49:47 Vital chart was started 10:49:47 Full Disclosure recording started 10:53:32 Oxygen 2 l/min NC was administered by Senthil Gill RN; used for procedure; 10:53:39 Zofran 4 mg I.V. was administered by Senthil Gill RN; Per physician; 10:55:09 Lidocaine 2% 20ml vial added to field was administered by Oz Birch MD; for local anesthetic; 10:55:14 Heparin Flush Bag (1000units/500ml NS) 2 bags added to field was administered by Oz Birch MD; used for procedure; 10:55:22 0.9% NaCl 100 ml/hr I.V. was administered by Senthil Gill RN; Per physician; 10:58:48 Baseline sample Acquired. 10:59:00 Rhythm: sinus rhythm 10:59:13 H&P Date Dictated: 12/23/2017 Within 30 days and on chart., H&P Addendum completed by physician on day of procedure. (MUST COMPLETE FOR ALL OUTPATIENTS). 11:00:07 Patient allergic to Other allergyANSAID, IMTREX, IODINE, MORPHINE, NAPROXEN, PCN, PERCOCET, TORADOL, TYLOX, ULTRAM 11:00:15 Is the patient allergic to Iodine/contrast media? No. 11:00:20 Is patient on blood thinner?Yes 11:00:21 Patient diabetic? Yes. 11:00:22 If diabetic: On Metformin? Yes 11:00:24 If on Metformin: Last Dose? 12/29/2017 11:00:39 Previous problem with sedation/anesthesia? No ? 11:00:41 Snore? No 11:00:42 Sleep apnea? Yes 11:00:43 Deviated septum? No 11:00:49 Opens mouth fully? Yes 11:00:50 Sticks out tongue? Yes 11:00:54 Airway obstruction? Yes ASTHMA, COPD 11:00:56 Dentures? No ? 11:00:59 Pre procedure: right dorsailis pedis pulse 2+ Normal; easily identifiable; not easily obliterated 11:01:02 Patient pain scale 0/10 ?. 11:01:30 IV patent on arrival in left forearm with 0.9% NaCl at [facility]. 11:02:20 Lab Result : BUN 10 mg/dl 11:02:20 Lab Result : Hemoglobin 12.4 g/dl 11:02:20 Lab Result : Creatinine 0.7 mg/dl 11:02:20 Lab Result : Hematocrit 35.7 % 11:02:23 Lab results completed and on chart. 11:02:25 Right groin area was prepped with chlora-prep and draped in sterile fashion 11:02:26 Alarms reviewed by R. N. 11:02:27 Sharps counted by scrub and verified by R.N. 11:02:29 Use device set Femoral Dx 11:02:30 ACIST Syringe (48099) opened to sterile field. 11:02:31 Bag Decanter (2002S) opened to sterile field. 11:02:32 ACIST Hand Control (47638) opened to sterile field. 11:02:33 ACIST Manifold (99251) opened to sterile field. 11:02:34 Tegaderm 4 x 4 (1626W) opened to sterile field. 11:02:36 SHEATH Prelude 5Fr 0.035 (MNS-9V-50-035) opened to sterile field. 11:02:37 DIAGNOSTIC Multipack 5Fr catheter set ([id number]) opened to sterile field. 11:02:38 Medline Cath Pack ([id number]) opened to sterile field. 11:02:38 DIAGNOSTIC WIRE .035 260cm J wire (072092) opened to sterile field. 11:02:46 Physician arrived 11:02:47 --------ALL STOP TIME OUT------ 11:02:47 Final Timeout: patient, procedure, and site verified with staff and physician. All members of the team are in agreement. 11:02:48 Right groin site verified by team. 11:02:53 Physical assessment completed. ASA score P 2 - A patient with mild systemic disease as per Oz Birch MD. 11:03:11 Sedation plan: IV Moderate Sedation Medication:Versed, Dilaudid 11:03:21 Zero performed for pressure channel P1 11:03:36 Versed 1 mg I.V. was administered by Senthil Gill RN; for sedation; 11:03:45 Dilaudid 1 mg I.V. was administered by Senthil Gill RN; for sedation; 11:06:16 Dilaudid 1 mg I.V. was administered by Senthil Gill RN; for sedation; 11:06:20 Versed 1 mg I.V. was administered by Senthil Gill RN; for sedation; 11:06:25 Procedure started. 11:06:28 Local anesthetic to right femoral artery with Lidocaine 2% by Oz Birch MD.INITIAL ACCESS ONLY 11:06:57 A 5 Fr sheath was inserted into the Right Femoral artery 11:07:07 A MULTIPACK Pigtail 5 Fr catheter was advanced over the wire and used for Procedure. 11:07:33 LV gram done using ALBA 11::40 Injector settings: Ml/sec: 10, Volume: 20, 11:07:45 EF : 60 % 11:07:50 LV hemodynamics recorded. 11:07:58 Catheter exchanged over wire. 11:08:02 A MULTIPACK JL 4.0 5Fr catheter was advanced over the wire and used for Procedure. 11:08:11 LCA angiography performed. 11:09:12 Catheter exchanged over wire. 11:09:17 A MULTIPACK 3DRC 5Fr catheter was advanced over the wire and used for Procedure. 11:09:48 RCA angiography performed. 11:09:49 EXOSEAL 5Fr (EX500) opened to sterile field. 11:09:51 Catheter removed. 11:09:59 Sheath removed intact; hemostasis achieved with Exoseal to the Right Femoral artery. 11:10:10 Procedure ended.(Physican Out) 11::28 Versed 2 mg I.V. was administered by Senthil Gill RN; for sedation; 11:13:23 Fluoroscopy time 00.70 minutes. 11:13:26 Flurop Dose total: 349 11:13:26 Fluoroscopy dose: 349 mGy 11:13:30 Contrast amount:Isovue 300 57ml. 11:13:32 Sharps counted by scrub and verified by R.N. 11:13:34 Insertion/operative site no bleeding no hematoma. 11:13:35 Post-op/insertion site Right Femoral artery dressed using a Bandaid. 11:13:38 Post right femoral artery:stable, soft, clean and dry 11:13:40 Post Procedure Pulses reassessed and unchanged 11:13:43 Post-procedure physical assessment completed. ASA score P 2 - A patient with mild systemic disease as per Oz Birch MD. 11:13:45 Post procedure rhythm: unchanged. 11:13:48 Estimated blood loss: 5 ml 11:13:49 Post procedure instruction explained to patient.Patient verbalizes understanding. 11:13:49 Patient needs reinforcement of post procedure teaching. 11:15:01 Procedure and supply charges have been captured, reviewed, submitted and are correct. 11:15:04 Procedure Complication : No complications 11:15:06 Vital chart was stopped 11:15:06 See physician's report for complete and final results. 11:15:08 Report given to Pre/Post Procedure Room. 11:15:10 Patient transfered to Pre/Post Procedure Room with Stretcher. 11:15:13 Procedure ended. 11:15:13 Full Disclosure recording stopped 11:15:19 End room use (Document Last) Device Usage Item Name Manufacture Quantity Catalog Number Hospital Part Current M inimal Lot# / Charge Number Stock Stock Serial# Code ACIST Syringe Acist 1 29830 [id number] 035402 [id number] 2 0 (71631) [employer] Bag Decanter Microtek 1 2001S 093322 54514 449702 5 (2001S) Medical Inc. ACIST Hand Acist 1 86752 341270 263275 016374 5 Control (42409) [employer] ACIST Manifold Acist 1 59757 792956 593412 304149 5 (36507) [employer] Inc Tegaderm 4 x 4 3M 1 1626W 489775 365896 881541 5 (1626W) SHEATH Prelude Merit 1 [id number]-7G-63-035 360784 514534 050956 5 5Fr 0.035 Medical (BOW-3N-58-035) DIAGNOSTIC Cardinal 1 [id number] 813852 87471 509900 3 0 Multipack 5Fr Health catheter set (FQ6411) Medline Cath Cardinal 1 [id number] 622560 11595 066023 5 Pack Health ([id number]) DIAGNOSTIC WIRE [facility] Abundio 1 731527 947057 694876 159096 3 0 .035 260cm J wire (449689) MULTIPACK Cardinal 1 595978 5 Pigtail 5 Fr Health catheter MULTIPACK JL Cardinal 1 917192 5 4.0 5Fr Health catheter MULTIPACK 3DRC Cardinal 1 218989 5 5Fr catheter Health EXOSEAL 5Fr Cardinal 1 EX500 538868 666632 827935 1 0 (EX500) Health Signature Audit [place] Stage Time Signature Unsigned Intra-Procedure 12/31/2017 Segun Alvarado 11:17:12 AM RT(R) Signatures Monitor : Segun Alvarado RT Signature : Date : Time : [place] [id number] [place] [address]
--- NOTE | ~2017-12-31 | OP ---
PATIENT NAME: MARSHA PEREZ MEDICAL RECORD: [id number] :61 LOCATION:[facility] ADMISSION DATE: SURGEON: LAZARA BREEN MD DATE OF OPERATION: 12/31/2017 PROCEDURES: 1. Left heart catheterization. 2. Selective coronary angiography. 3. Left ventriculogram. INDICATION: Chest pain compatible with angina, coronary artery disease, previous PTCA stent. PROCEDURE IN DETAIL: After informed consent was obtained and after a detailed explanation of the risks, benefits as well as alternative therapies, the patient elected to proceed with angiogram and heart catheterization. The right femoral area was prepped and draped in normal sterile fashion. Right femoral artery was cannulated via modified Seldinger technique with placement of 6-St Lucian sheath. All catheters exchanged through this sheath. FINDINGS: The left ventriculogram was performed in the standard 30-degree ALBA view, reveals good cardiac wall motion throughout all segments. Overall ejection fraction estimated at 60%. SELECTIVE CORONARY ANGIOGRAPHY: 1. Left main is with no significant angiographic disease. 2. Left anterior descending has moderate irregularities, but no flow-limiting stenosis. 3. Left circumflex has a previously placed stent. This is widely patent with no significant restenosis. No disease elsewise throughout the left circumflex or its branches. 4. Right coronary has moderate irregularities, but no flow-limiting stenosis. OVERALL IMPRESSION: Wide patency of the previously placed stent in the left circumflex. No disease elsewise. Continue medical management of the coronary artery disease and cardiac risk factors. TRANSINT:[id number] Voice Confirmation ID: [id number] DOCUMENT ID: [id number] LAZARA BREEN MD at 1325 CC: [id number] DICTATION DATE: 12/31/17 1114 [employer] PARAPROFESSIONAL: 12/31/17 1131 DEP CLI 12/31/17 [place] [id number]
[2017-12-31] MEDS ORDERED: HYDROCODONE-ACETAMIN (09:24)
[2017-12-31] MEDS ORDERED: KLONOPIN1 MG PO (09:24)
[2017-12-31 09:39] VITALS: BP 132/78; Ht 165.1 cm; Wt 82.7 kg
[2017-12-31 09:43] LABS: BASOPHILS 0.2 % (0-2); EOSINOPHILS 0.2 % (0-7); HEMATOCRIT 35.7 % (36.0-48.0); HEMOGLOBIN 12.4 g/dL (12-16); IMMATURE GRANULOCYTES 0.3 % (0-5); LYMPHOCYTES 19.3 % (15-50); MCH 30.6 pg (26.0-34.0); MCHC 34.7 g/dL (31.0-37.0); MCV 88.1 fL (80.0-100.0); MEAN PLATELET VOLUME 11.3 fL (7.4-10.4); MONOCYTES 1.2 % (2-11); NEUTROPHILS 78.8 % (40-80); RBC 4.05 10x6/uL (4.00-5.40); RDW 13.2 % (11.5-14.5); WBC 6.1 10x3/uL (4.8-10.8)
[2017-12-31 09:48] LABS: PLATELET COUNT 169 10x3/uL (130-400)
[2017-12-31 09:54] LABS: INR 1.07 (0.85-1.17); PROTIME 13.5 SECONDS (11.6-15.0)
[2017-12-31 09:55] LABS: CALC OSMOLALITY 283 mosm/kg (275-300); CALCIUM 8.8 mg/dL (8.5-10.1); CARBON DIOXIDE 22.9 mmol/L (21.0-32.0); CHLORIDE - SERUM 104 mmol/L (98-107); CREATININE - SERUM 0.7 mg/dL (0.6-1.3); POTASSIUM - SERUM 3.3 mmol/L (3.5-5.1); SODIUM 140 mmol/L (136-145); UREA NITROGEN 10 mg/dL (7-18); eGFR NON AFRICAN AMERICAN > 90 mL/min (90-120)
[2017-12-31 10:02] LABS: GLUCOSE 205 mg/dL (74-106)
== END 2017-12-31 14:20 | disposition home or self-care (01) ==
LOC: D.CATH 08:21
PROVIDERS: Internal Medicine Interventional Cardiology
DX: I25.119 Atherosclerotic heart disease of native coronary artery with unspecified angina pectoris (principal); Z95.5 Presence of coronary angioplasty implant and graft; Z01.812 Encounter for preprocedural laboratory examination

== ENCOUNTER → 2018-02-10 09:41 | Outpatient (CLI) | payer MEDICAID ==
[~2018-02-10 09:41] MED LIST changes: +HYDROCODONE-ACETAMIN
== END | disposition home or self-care (01) ==
LOC: D.MRI 09:41
DX: S83.231D Complex tear of medial meniscus, current injury, right knee, subsequent encounter (principal); X58.XXXA Exposure to other specified factors, initial encounter

== ENCOUNTER 2018-03-17 06:30 | Day surgery (SDC) | payer MEDICAID ==
[2018-03-16 11:03] LABS: BASOPHILS 0.3 % (0-2); EOSINOPHILS 2.2 % (0-7); HEMATOCRIT 35.4 % (36.0-48.0); IMMATURE GRANULOCYTES 0.2 % (0-5); LYMPHOCYTES 42.4 % (15-50); MCH 30.3 pg (26.0-34.0); MCHC 33.9 g/dL (31.0-37.0); MCV 89.4 fL (80.0-100.0); MEAN PLATELET VOLUME 11.5 fL (7.4-10.4); MONOCYTES 9.1 % (2-11); NEUTROPHILS 45.8 % (40-80); PLATELET COUNT 153 10x3/uL (130-400); RBC 3.96 10x6/uL (4.00-5.40); RDW 13.3 % (11.5-14.5); WBC 5.9 10x3/uL (4.8-10.8)
[2018-03-16 11:12] LABS: CALC OSMOLALITY 282 mosm/kg (275-300); CALCIUM 8.5 mg/dL (8.5-10.1); CARBON DIOXIDE 25.7 mmol/L (21.0-32.0); CHLORIDE - SERUM 104 mmol/L (98-107); CREATININE - SERUM 0.7 mg/dL (0.6-1.3); GLUCOSE 202 mg/dL (74-106); POTASSIUM - SERUM 3.7 mmol/L (3.5-5.1); SODIUM 139 mmol/L (136-145); UREA NITROGEN 10 mg/dL (7-18); eGFR NON AFRICAN AMERICAN > 90 mL/min (90-120)
[2018-03-16 11:19] LABS: APTT 28.8 SECONDS (22.8-39.4); INR 1.08 (0.85-1.17); PROTIME 13.6 SECONDS (11.6-15.0)
[~2018-03-17] VITALS: Ht 165.1 cm; Wt 83.9 kg
--- NOTE | ~2018-03-17 | OP ---
PATIENT NAME: MARSHA PEREZ MEDICAL RECORD: [id number] :61 LOCATION:[facility] ADMISSION DATE: SURGEON: TON MARTINEZ DO DATE OF OPERATION: 03/17/2018 PROCEDURE PERFORMED: Right knee arthroscopy with partial medial meniscectomy. PREOPERATIVE DIAGNOSIS: Right knee medial meniscal tear. POSTOPERATIVE DIAGNOSIS: Right knee medial meniscal tear. INDICATIONS: Ms. Perez is a 52-year-old female, who presented to my office. She had her right knee scoped last year and seemed to have re-torn her meniscus. She had an MRI, which showed a retear in her posterior horn of her medial meniscus and a partial medial meniscectomy on that last year and that re-tore. She had symptoms, catching, popping, locking and giving way. She wanted something done surgically to treat it to deal with the pain. I informed her that we could trim the meniscus out, but it may advance her arthritis. She was okay with that as long as the symptoms got better. She consented to the procedure. SURGEON: Ton Martinez DO DESCRIPTION OF PROCEDURE: The patient was taken to the operative suite, laid in supine position. Right lower extremity was prepped and draped in sterile fashion. The patient was given clindamycin preoperatively due to allergies. Timeout was performed. Everyone was in agreement with the correct side, site, patient and procedure. The knee was then flexed down to 90 degrees. The lateral portal was established with an 11-blade scalpel. The trocar was then entered in the knee. Inspection began in the suprapatellar pouch and then within the medial and lateral gutters, no loose bodies were seen in either and then the knee was brought from extension to flexion and the medial compartment was then entered. A large tear in the intrasubstance of the posterior horn of the medial meniscus was noted. The medial portal was then established. An 18-gauge spinal needle with 11-blade scalpel and then the trocar was entered in and an up-biter was entered. The tear in the meniscus was bit away and then trimmed up with the shaver. Once the tear was bit back and chewed back with a shaver to stable position, it was probed and seen to not have any more tears. The ACL was then checked and seemed to be in good position. The knee was then [id number] and a probe was used to probe the lateral meniscus, which was seen to be in good condition. No tear was seen in it. The knee was then brought back into an extension and no loose bodies were seen in the suprapatellar pouch. There was a small amount of chondromalacia on the patella, just fissuring, grade II chondromalacia. Water was turned off and the suction was turned on and the portal sites were closed with 4-0 Monocryl in an inverted interrupted fashion. Steri-Strips, Telfa, Tegaderm, ABD, Webril, and Jalen wrap were then placed on the knee. SHAE hose stockinette was placed up to the knee. The patient was awakened and taken to recovery in stable condition. Blood loss minimal, complications none. TRANSINT:[id number] Voice Confirmation ID: [id number] DOCUMENT ID: [id number] OPERATIVE REPORT [id number] MARSHA PEREZ MICHAEL D, DO at 1317 CC: [id number] DICTATION DATE: 03/17/18 1022 CHEMISTS: 03/17/18 1116 [facility] [address] [place] [address]
[~2018-03-17 06:30] MED LIST changes: +BUTALB-APAP-CA1 EACH PO; +CELEXA10 MG PO; +NORCO 10-325 TA1 TAB PO; +OMEPRAZOLE20 M1 PO; +RANEXA500 MG PO
[2018-03-17] MEDS ORDERED: ALBUTEROL SULF8.5 GM INH (08:01)
[2018-03-17 08:07] VITALS: BP 127/58; Ht 165.1 cm; Wt 83.9 kg
[2018-03-17] MEDS ORDERED: DILAUDID4 MG PO (09:26)
== END 2018-03-17 13:20 | disposition home or self-care (01) ==
LOC: D.OPS 06:30 → D.PAN 07:30 → D.OPS 07:30 → D.PAN 08:45 → D.OPS 08:45
PROVIDERS: Anesthesiology
DX: S83.241A Other tear of medial meniscus, current injury, right knee, initial encounter (principal); Z01.812 Encounter for preprocedural laboratory examination; X58.XXXA Exposure to other specified factors, initial encounter

== ENCOUNTER → 2018-07-14 09:22 | Outpatient (CLI) | payer MEDICAID ==
[2018-03-17 08:07] VITALS: BMI 30.8
[~2018-07-14 09:22] MED LIST changes: +ALBUTEROL SULF8.5 GM INH; +DILAUDID4 MG PO
== END | disposition home or self-care (01) ==
LOC: D.RAD 09:22
DX: M54.5 Low back pain (principal); M54.6 Pain in thoracic spine

== ENCOUNTER 2018-08-23 11:05 | Emergency (ER) | payer MEDICAID ==
[~2018-08-23] VITALS: Ht 165.1 cm; Wt 85.9 kg
[2018-08-23 11:14] VITALS: Ht 165.1 cm; Wt 85.9 kg
[2018-08-23 11:41] LABS: BASOPHILS 0.3 % (0-2); EOSINOPHILS 0.6 % (0-7); HEMATOCRIT 38.1 % (36.0-48.0); HEMOGLOBIN 12.9 g/dL (12-16); IMMATURE GRANULOCYTES 0.4 % (0-5); LYMPHOCYTES 15.7 % (15-50); MCH 29.7 pg (26.0-34.0); MCHC 33.9 g/dL (31.0-37.0); MCV 87.8 fL (80.0-100.0); MEAN PLATELET VOLUME 11.7 fL (7.4-10.4); MONOCYTES 6.5 % (2-11); NEUTROPHILS 76.5 % (40-80); PLATELET COUNT 190 10x3/uL (130-400); RBC 4.34 10x6/uL (4.00-5.40); RDW 13.2 % (11.5-14.5); WBC 13.9 10x3/uL (4.8-10.8)
[2018-08-23 11:49] LABS: APPEARANCE CLOUDY (CLEAR); BILIRUBIN NEGATIVE (NEGATIVE); COLOR YELLOW (YELLOW); GLUCOSE 500 mg/dL (NEGATIVE); KETONE SMALL mg/dL (NEGATIVE); NITRITE POSITIVE (NEGATIVE); PROTEIN 1+ mg/dL (NEGATIVE); SPECIFIC GRAVITY 1.015 (1.005-1.020); UROBILINOGEN NORMAL (NORMAL)
[2018-08-23 11:52] LABS: BACTERIA MODERATE /hpf (NONE SEEN); EPITHELIAL CELLS 0-5 /hpf (0-5); RED CELLS - URINE 0-5 /hpf (0-5)
[2018-08-23 12:08] LABS: ALBUMIN 3.7 g/dL (3.4-5.0); ALKALINE PHOSPHATASE 182 U/L (46-116); ALT (SGPT) 46 U/L (10-68); BILIRUBIN - TOTAL 0.46 mg/dL (0.2-1.3); CALC OSMOLALITY 276 mosm/kg (275-300); CALCIUM 8.9 mg/dL (8.5-10.1); CARBON DIOXIDE 23.4 mmol/L (21.0-32.0); CHLORIDE - SERUM 98 mmol/L (98-107); CREATININE - SERUM 0.7 mg/dL (0.6-1.3); GLUCOSE 315 mg/dL (74-106); POTASSIUM - SERUM 3.8 mmol/L (3.5-5.1); PROTEIN - SERUM 8.7 g/dL (6.4-8.2); SODIUM 133 mmol/L (136-145); UREA NITROGEN 9 mg/dL (7-18); eGFR NON AFRICAN AMERICAN > 90 mL/min (90-120)
[2018-08-23] MEDS ORDERED: ZOFRAN4 MG PO (13:03)
[2018-08-23] MEDS ORDERED: LEVOFLOXACIN500 MG PO (13:03)
[2018-08-23 13:26] VITALS: BP 132/78
== END 2018-08-23 13:27 | disposition home or self-care (01) ==
LOC: D.ER 11:05
PROVIDERS: Emergency Medicine
DX: N39.0 Urinary tract infection, site not specified (principal); J01.90 Acute sinusitis, unspecified

== ENCOUNTER → 2018-08-31 09:17 | Outpatient (CLI) | payer MEDICAID ==
[2018-08-23 11:14] VITALS: BMI 31.5
[~2018-08-31 09:17] MED LIST changes: +LEVOFLOXACIN500 MG PO; +ZOFRAN4 MG PO
== END | disposition home or self-care (01) ==
LOC: D.MRI 09:17
PROVIDERS: ATTEND Orthopaedic Surgery
DX: M75.102 Unspecified rotator cuff tear or rupture of left shoulder, not specified as traumatic (principal)

== ENCOUNTER 2018-09-30 16:00 | Emergency (ER) | payer MEDICAID ==
[~2018-09-30] VITALS: Ht 165.1 cm; Wt 85.9 kg
[2018-09-30 16:28] VITALS: Ht 165.1 cm; Wt 85.9 kg
[2018-09-30] MEDS ORDERED: TALWIN NX1 TAB PO (20:58)
[2018-09-30] MEDS ORDERED: BACLOFEN20 M1 PO (20:58)
[2018-09-30 21:30] VITALS: BP 124/78
== END 2018-10-01 00:13 | disposition home or self-care (01) ==
LOC: D.ER 16:00
DX: S39.012A Strain of muscle, fascia and tendon of lower back, initial encounter (principal); S16.1XXA Strain of muscle, fascia and tendon at neck level, initial encounter; V49.49XA Driver injured in collision with other motor vehicles in traffic accident, initial encounter; E11.9 Type 2 diabetes mellitus without complications; I10 Essential (primary) hypertension; K21.9 Gastro-esophageal reflux disease without esophagitis

== ENCOUNTER 2019-04-20 08:00 | Outpatient (CLI) | payer MEDICAID ==
[2018-09-30 16:28] VITALS: BMI 31.5
[~2019-04-20 08:00] MED LIST changes: +BACLOFEN20 M1 PO; +TALWIN NX1 TAB PO
== END 2019-04-20 23:59 | disposition home or self-care (01) ==
LOC: D.MAMMO 08:00
PROVIDERS: ATTEND Family Medicine
DX: N63.21 Unspecified lump in the left breast, upper outer quadrant (principal)

== ENCOUNTER → 2019-04-20 14:12 | Outpatient (CLI) | payer MEDICAID ==
[2018-09-30 16:28] VITALS: BMI 31.5
[2019-04-20 15:12] LABS: BASOPHILS 0.5 % (0-2); HEMATOCRIT 40.1 % (36.0-48.0); HEMOGLOBIN 13.1 g/dL (12-16); IMMATURE GRANULOCYTES 0.1 % (0-5); MCH 29.6 pg (26.0-34.0); MCHC 32.7 g/dL (31.0-37.0); MCV 90.7 fL (80.0-100.0); MEAN PLATELET VOLUME 10.7 fL (7.4-10.4); MONOCYTES 8.5 % (2-11); NEUTROPHILS 45.9 % (40-80); PLATELET COUNT 226 10x3/uL (130-400); RBC 4.42 10x6/uL (4.00-5.40); RDW 14.8 % (11.5-14.5); WBC 7.7 10x3/uL (4.8-10.8)
[2019-04-20 15:20] LABS: CALC OSMOLALITY 286 mosm/kg (275-300); CALCIUM 8.9 mg/dL (8.5-10.1); CARBON DIOXIDE 28.4 mmol/L (21.0-32.0); CHLORIDE - SERUM 107 mmol/L (98-107); CREATININE - SERUM 0.8 mg/dL (0.6-1.3); GLUCOSE 115 mg/dL (74-106); INR 1.21 (0.85-1.17); POTASSIUM - SERUM 3.8 mmol/L (3.5-5.1); PROTIME 14.8 SECONDS (11.6-15.0); SODIUM 143 mmol/L (136-145); UDS - AMPHET NEGATIVE QUAL (NEGATIVE); UDS - BARB POSITIVE QUAL (NEGATIVE); UDS - BENZO NEGATIVE QUAL (NEGATIVE); UDS - COCAINE NEGATIVE QUAL (NEGATIVE); UDS - OPIATE NEGATIVE QUAL (NEGATIVE); UDS - PCP NEGATIVE QUAL (NEGATIVE); UDS - THC POSITIVE QUAL (NEGATIVE); UREA NITROGEN 16 mg/dL (7-18); eGFR NON AFRICAN AMERICAN 78 mL/min (90-120)
== END | disposition home or self-care (01) ==
LOC: D.LAB 14:12
PROVIDERS: ATTEND Specialist
DX: Z01.812 Encounter for preprocedural laboratory examination (principal)

== ENCOUNTER → 2019-11-09 11:40 | Outpatient (CLI) | payer MEDICAID ==
[2018-09-30 16:28] VITALS: BMI 31.5
== END | disposition home or self-care (01) ==
LOC: D.RAD 11:40
PROVIDERS: ATTEND Pain Medicine Interventional Pain Medicine
DX: M79.671 Pain in right foot (principal)

== ENCOUNTER 2020-01-17 20:56 | Emergency (ER) | payer MEDICAID ==
[~2020-01-17] VITALS: Ht 165.1 cm; Wt 78.2 kg
[2020-01-17 21:22] VITALS: Ht 165.1 cm; Wt 78.2 kg
[2020-01-17 22:30] LABS: ALBUMIN 3.7 g/dL (3.4-5.0); ALKALINE PHOSPHATASE 181 U/L (30-120); ALT (SGPT) 37 U/L (10-68); AMYLASE - SERUM 25 U/L (25-115); BILIRUBIN - TOTAL 0.13 mg/dL (0.2-1.3); CALC OSMOLALITY 282 mosm/kg (275-300); CALCIUM 8.6 mg/dL (8.5-10.1); CARBON DIOXIDE 26.9 mmol/L (21.0-32.0); CHLORIDE - SERUM 102 mmol/L (98-107); CREATININE - SERUM 0.8 mg/dL (0.6-1.3); LIPASE 140 U/L (73-393); POTASSIUM - SERUM 3.7 mmol/L (3.5-5.1); PROTEIN - SERUM 8.2 g/dL (6.4-8.2); SODIUM 137 mmol/L (136-145); TROPONIN-I < 0.017 ng/mL (0.000-0.060); UREA NITROGEN 10 mg/dL (7-18); eGFR NON AFRICAN AMERICAN 78 mL/min (90-120)
[2020-01-17 22:32] LABS: BASOPHILS 0.3 % (0-2); HEMATOCRIT 38.2 % (36.0-48.0); IMMATURE GRANULOCYTES 0.3 % (0-5); MCH 26.5 pg (26.0-34.0); MCHC 31.4 g/dL (31.0-37.0); MCV 84.3 fL (80.0-100.0); MEAN PLATELET VOLUME 10.9 fL (7.4-10.4); MONOCYTES 9.4 % (2-11); PLATELET COUNT 212 10x3/uL (130-400); RBC 4.53 10x6/uL (4.00-5.40); RDW 15.6 % (11.5-14.5); WBC 6.6 10x3/uL (4.8-10.8)
[2020-01-17 22:37] LABS: GLUCOSE 273 mg/dL (74-106)
[2020-01-17 23:27] LABS: BILIRUBIN NEGATIVE (NEGATIVE); GLUCOSE 1000 mg/dL (NEGATIVE); KETONE NEGATIVE (NEGATIVE); NITRITE NEGATIVE (NEGATIVE); UROBILINOGEN NORMAL (NORMAL)
[2020-01-18] MEDS ORDERED: PREDNISONE20 MG PO (05:06)
[2020-01-18 05:26] VITALS: BP 126/69
== END 2020-01-18 05:33 | disposition home or self-care (01) ==
LOC: D.ER 20:56
PROVIDERS: Family Medicine
DX: R10.11 Right upper quadrant pain (principal)

== ENCOUNTER 2020-10-11 00:18 | Observation (INO) | payer MEDICAID ==
[~2020-10-11] VITALS: Ht 165.1 cm; Wt 80.7 kg
--- NOTE | ~2020-10-11 | OP ---
PATIENT NAME: MARSHA PEREZ MEDICAL RECORD: [id number] :61 LOCATION:D.M2 D.2139 ADMISSION DATE:10/11/20 SURGEON: KAYA FLOWER MD DATE OF OPERATION: 10/11/2020 PROCEDURE: Left heart catheterization, selective coronary angiography, right femoral artery approach. CATHETERS: A 5-Telugu sheath, 5/4 left and right Keshawn, 5/4 pig. The procedure was well tolerated, the patient returned to dixon, sheath removed, ExoSeal device placed. FINDINGS: Left ventriculography in 30-degree ALBA view: Normal wall motion and normal systolic function. CORONARY ANATOMY: LEFT MAIN: Left main is free of disease. LAD: LAD in the area of previous stenting is widely patent. No evidence of restenosis. No progression of disease. CIRCUMFLEX: Moderate size circumflex free of disease. RIGHT CORONARY ARTERY: Dominant artery, gives rise to PDA, free of disease. IMPRESSION: Normal LV systolic function, normal coronary anatomy. TRANSINT:[id number] Voice Confirmation ID: [id number] DOCUMENT ID: [id number] KAYA FLOWER MD CC: [id number] DICTATION DATE: 10/11/20 1238 ASSOCIATE MATERIAL HANDLER: 10/11/202025 ADM IN [facility] [address] [place] [id number]
--- NOTE | ~2020-10-11 | CN ---
PATIENT NAME:MARSHA PEREZ MEDICAL RECORD: [id number] : 61 LOCATION:[facility] D.2139 ADMIT DATE: 10/11/20 ACCOUNT: [id number] CONSULTING PHYSICIAN: KAYA FLOWER MD REFERRING PHYSICIAN: MANDIE TYLER MD DATE OF CONSULTATION: 10/11/2020 HISTORY OF PRESENT ILLNESS: A 55-year-old female with a known history of coronary artery disease, status post intervention via Dr. Birch, has a history of hypertension, hyperlipidemia, diabetes mellitus, doing well until the last 4 to 5 days, had progressive dyspnea on exertion, chest heaviness and tightness, radiating to the jaw. Had risk symptomology, called EMT, presented to the ER, noted to have ST-T changes. Cardiac enzymes are negative so far with acute coronary syndrome. We are asked to see her concerning cardiovascular status. PAST MEDICAL HISTORY: Includes; 1. History of hypertension. 2. Hyperlipidemia. 3. Diabetes mellitus. 4. Coronary artery disease as described above. 5. Obstructive pulmonary disease. MEDICATIONS: Include Phenergan 25 mg p.o. every 4 hours p.r.n., albuterol 2 puffs q.i.d., Flexeril 10 mg p.o. b.i.d., Eliquis 5 mg p.o. a day, atorvastatin 10 mg p.o. every day, Imdur 60 mg p.o. every day, amlodipine 5 every day, aspirin 81 every day, Celexa 10 mg p.o. every day, [place] 10/325 every day, Klonopin 1 mg p.o. t.i.d., Lasix 20 mg p.o. every day, omeprazole 20 every day, metformin 1 gram b.i.d. SOCIAL HISTORY: Smokes about a pack a day, nondrinker. No set exercise program. Easily able to take care of all her ADLs. ALLERGIES: VOLTAREN, IMITREX, TRAMADOL. REVIEW OF SYSTEMS: The patient reports easy bruising but reports no swollen glands. The patient reports no fever, no night sweats, no significant weight gain, no significant weight loss. No significant exercise tolerance. The patient reports no dry eyes, no irritation, no vision change. Patient reports no difficulty hearing and no ear pain. Patient reports no frequent nose bleeds or nose and sinus problems. Patient reports on arm pain on exertion. No shortness of breath while lying down. No history of heart murmur. Patient reports no cough, no wheezing or coughing up blood. Patient reports no abdominal pain, no vomiting. Normal appetite. No diarrhea and not vomiting blood. No nausea and no constipation. Patient reports no incontinence. No difficulty urinating. No hematuria. No increased frequency. Patient reports no muscle aches. No weakness, no arthralgias, no back pain. No swelling of the extremities. Patient reports no abnormal mole, no jaundice, no rashes. Reports no loss of consciousness. No weakness and no numbness. No seizures, dizziness, or headaches. The patient reports no depression, no sleep disturbance, feeling safe in a relationship and no alcohol abuse. Patient reports on fatigue. Reports no runny nose or sinus pressure. No itching, no hives, and no frequent sneezing. PHYSICAL EXAMINATION: GENERAL: Well-developed, well-nourished, no acute distress, appears stated age. CONSULT REPORT [id number] MARSHA PEREZ VITAL SIGNS: Blood pressure 123/64, pulse 84 and regular. HEENT: Normocephalic, atraumatic. NECK: No JVD or bruit. HEART: Regular. A II/ systolic ejection murmur. LUNGS: Good air excursion. ABDOMEN: Soft and nontender. EXTREMITIES: Pulses 2+. There is no edema. IMPRESSION: Acute coronary syndrome, known history of coronary artery disease. PLAN: For angiography and intervention based on the above. TRANSINT:[id number] Voice Confirmation ID: [id number] DOCUMENT ID: [id number] KAYA FLOWER MD CC: [id number] DICTATION DATE: 10/11/20 1128 STAGE SETTINGS PAINTER: 10/11/20 1311 ADM IN [facility] [address] [place] [address]
--- NOTE | ~2020-10-11 | HEMODYNAMI ---
PATIENT:MARSHA PEREZ MEDICAL RECORD: [id number] : 61 [facility] D.2139 [id number] ADMISSION DATE: 10/11/20 Generatedon:112:35 Patient name: MARSHA PEREZ Patient #: [id number] : 1965 Date of study: 10/11/2020 Page: Of Hemodynamic Procedure Report Patient Data Patient Demographics First Name: MARSHA Gender: Female Last Name: CHRIS : 1965 Middle Initial: C Age: 55 year(s) Patient #: [id number] Race: SSN: [id number] Additional ID: [id number] Contact details Address: [address] [place] [address] State: [place] City: [place] Zip code: [address] Past Medical History Allergies Allergen Reaction Date Comments Reported Other allergy 12/31/2017 ANSAID, IMTREX, IODINE, MORPHINE, NAPROXEN, PCN, PERCOCET, TORADOL, TYLOX, ULTRAM Admission Admission Data Admission Date: 10/11/2020 Admission Time: 2:08 Room #: D.2139 Height (in.): 64.96 BSA: 1.87 (m2) Height (cm.): 165 BMI: 29.38 (kg/m2) Weight (lbs.): 176.37 Weight (kg.): 80 Procedure Procedure Types Cath Procedure Diagnostic Procedure C [facility] w/Coronaries Procedure Description Procedure Date Procedure Date: 10/11/2020 Procedure Start Time: 12:25 Procedure End Time: 12:33 Procedure Staff Name Function Jose Messina MD Performing Physician Monisha Bernal RT Monitor Senthil Gill RN Nurse Quang Chappell RN Nurse Silke Taylor RT Scrub Procedure Data Cath Procedure Fluoroscopy Diagnostic fluoroscopy Total fluoroscopy Time: 0.9 time: 0.9 min min Diagnostic fluoroscopy Total fluoroscopy dose: 333 dose: 333 mGy mGy Contrast Material Contrast Material Type Amount (ml) Isovue 300 62 Entry Location Entry Primary Successful Side Size Upsize Upsize Entry Closure Succes sful Closure Location (Fr) 1 (Fr) 2 (Fr) Remarks Device Remarks Femoral Right 5 Fr Exoseal artery Estimated blood loss: 10 ml Diagnostic catheters Device Type Used For End Catheter Placement MULTIPACK JL 4.0 5Fr Procedure catheter MULTIPACK 3DRC 5Fr Procedure catheter MULTIPACK Pigtail 5 Fr Ventriculography catheter Procedure Complications No complications Procedure Medications Medication Administration Route Dosage Oxygen etCO2 Nasal cannula 2 l/min Lidocaine 2% added to field 20 Heparin Flush Bag added to field 2 bags (1000units/500ml NS) 0.9% NaCl I.V. 100 ml/hr Zofran I.V. 4 mg Versed I.V. 1 mg Dilaudid I.V. 1 mg Dilaudid I.V. 1 mg Versed I.V. 1 mg Hemodynamics Rest BSA: 1.87 (m2) O2 Consumption: Estimated: 189.6 (ml/min) O2 Consumption indexed: Estimated:101.39 (ml/min/m) Heart Rate: 85 (bpm) Pressure Samples Time Site Value (mmHg) Purpose Heart Use Rate(bpm) 12:29 LV 137/23,29 Snapshot 87 Snapshots Pre Cath Intra NCS Post Cath Vital Signs Time Heart Resp SPO2 etCO2 NIBP (mmHg) Rhythm Pain Sedation Rate (ipm) (%) (mmHg) Status Level (bpm) 12:21:26 85 20 94 0 140/80(108) NSR 0 (11) 10(A) , No pain 12:25:46 90 20 96 30.1 143/83(106) NSR 0 (11) 10(A) , No pain 12:30:08 85 13 92 34.6 150/84(103) NSR 0 (11) 9(A) , No pain 12:33:37 84 12 94 39.2 140/84(109) NSR 0 (11) 10(A) , No pain Medications Time Medication Route Dose Verified Delivered Reason Notes Eff ectiveness by by 12:20:23 Oxygen etCO2 2 Jose Senthil used for Nasal l/min [facility] Arden Gill medical billing representative cannula 12:20:32 Lidocaine 2% added 20ml Jose Garcia for local to vial [facility] anesthetic field MD ROSAS 12:20:41 Heparin Flush added 2 Jose Jose used for Bag to bags [facility] procedure (1000units/500ml field MD MD NS) 12:20:49 0.9% NaCl I.V. 100 Jose Ndiaye Per ml/hr St Arden Gill RN physician 12:20:58 Zofran I.V. 4 mg Jose Ndiaye Per [facility] Arden Gill RN physician 12:22:17 Versed I.V. [address] [facility] Arden Chappell RN sedation 12:22:31 Dilaudid I.V. 1 [address] for [facility] Arden Chappell RN sedation 12:26:56 Dilaudid I.V. 1 [address] for [facility] Arden Chappell RN sedation 12:27:03 Versed I.V. 1 [address] for [facility] Arden Chappell RN sedation Procedure Log Time Note 12:08:48 Patient Height : 64.96 inches 12:08:51 Patient Weight : 176.37 lbs 12:09:16 Diagnostic Cath Status : Urgent 12:09:43 Procedure Status Urgent Heart Cath (IP). 12:09:46 Senthil Gill RN sent for patient. Start room use. 12:09:47 Time tracking: Regular hours (M-F 7:00 - 5:00) 12:09:53 Plan of Care:Hemodynamics will remain stable., Cardiac rhythm will remain stable., Comfort level will be maintained., Respiratory function will remain adequate., Patient/ family verbilizes understanding of procedure., Procedure tolerated without complication., Recovers from procedure without complications.. 12:10:01 Patient received from Med II to CCL 1 Alert and oriented. Tansferred to table in Supine position. 12:10:02 Warm blankets applied, and zane hugger turned on for patient comfort. 12:10:03 Correct patient and procedure confirmed by team. 12:10:04 ECG and BP/O2 sat monitors applied to patient. 12:10:13 H&P Date Dictated: 10/11/2020 Within 30 days and on chart.. 12:10:14 Pre-procedure instructions explained to patient. 12:10:17 Family in patients room. 12:10:18 Patient NPO since Midnight. 12:10:29 Was the patient premedicated? Yes 12:10:39 Is patient on blood thinner?Yes 12:10:44 ACC The patient was administered the following blood thiners within the last 24 hours: Eliquis 12:10:46 Patient diabetic? Yes. 12:11:14 If diabetic: On Metformin? Yes 12:11:21 Snore? Yes 12:11:22 Sleep apnea? Yes 12:11:28 Airway obstruction? Yes ? 12:11:34 Patient pain scale 6/10 ?. 12:11:40 IV patent on arrival in left forearm with 0.9% NaCl at [facility]. 12:11:46 Right groin area was prepped with chlora-prep and draped in sterile fashion 12:11:47 Alarms reviewed by R. N. 12:11:47 Sharps counted by scrub and verified by R.N. 12:11:49 Physician arrived 12:19:28 --------ALL STOP TIME OUT------ 12:19:29 Final Timeout: patient, procedure, and site verified with staff and physician. All members of the team are in agreement. 12:19:33 Right groin site verified by team. 12:19:37 Fire Safety Assessment: A--An alcohol-based skin anteseptic being used preoperatively., C--Open oxygen or nitrous oxide is being used., D--An ESU, laser, or fiber-optic light is being used. 12:19:41 Physical assessment completed. ASA score P 3 - A patient with severe systemic disease as per Jose Messina MD. 12:19:44 1) 90+ Normal kidney functon but urine findings or structural abnormalities or genetic trait point to kidney disease. 12:19:47 Maximum allowable contrast dose (3.7 X eGFR X 0.75)250 ml. 12:19:52 Sedation plan: IV Moderate Sedation Medication:Versed, Fentanyl 12:19:56 Use device set Femoral Dx 12:20:08 ACIST Syringe (69767) opened to sterile field. 12:20:08 Bag Decanter (2002S) opened to sterile field. 12:20:09 Medline Cath Pack ([id number]) opened to sterile field. 12:20:10 ACIST Hand Control (73321) opened to sterile field. 12:20:11 ACIST Manifold (93106) opened to sterile field. 12:20:12 DIAGNOSTIC Multipack 5Fr catheter set ([id number]) opened to sterile field. 12:20:13 Vital chart was started 12:20:14 SHEATH 5FR [place] ([id number]) opened to sterile field. 12:20:15 EMERALD Guide Wire (683-008) opened to sterile field. 12:20:23 Oxygen 2 l/min etCO2 Nasal cannula was administered by Senthil Gill RN; used for procedure; Verbal order read back and verified. 12:20:32 Lidocaine 2% 20ml vial added to field was administered by Jose Messina MD; for local anesthetic; Verbal order read back and verified. 12:20:41 Heparin Flush Bag (1000units/500ml NS) 2 bags added to field was administered by Jose Messina MD; used for procedure; Verbal order read back and verified. 12:20:49 0.9% NaCl 100 ml/hr I.V. was administered by Senthil Gill RN; Per physician; Verbal order read back and verified. 12:20:58 Zofran 4 mg I.V. was administered by Senthil Gill RN; Per physician; Verbal order read back and verified. 12:22:17 Versed 1 mg I.V. was administered by Quang Chappell RN; for sedation; Verbal order read back and verified. 12:22:31 Dilaudid 1 mg I.V. was administered by Quang Chappell RN; for sedation; Verbal order read back and verified. 12:24:17 Baseline sample Acquired. 12:24:19 Full Disclosure recording started 12:24:23 Zero performed for pressure channel P1 12:24:39 Sedation plan: IV Moderate Sedation Medication:Versed, Dilaudid 12:24:57 Procedure started. 12:25:02 Local anesthetic to right femoral artery with Lidocaine 2% by Jose Messina MD.INITIAL ACCESS ONLY 12:25:10 A 5 Fr sheath was inserted into the Right Femoral artery 12:25:51 A MULTIPACK JL 4.0 5Fr catheter was advanced over the wire and used for Procedure. 12:25:59 LCA angiography performed. 12:26:56 Dilaudid 1 mg I.V. was administered by Quang Chappell RN; for sedation; Verbal order read back and verified. 12:27:03 Versed 1 mg I.V. was administered by Quang Chappell RN; for sedation; Verbal order read back and verified. 12:27:08 Catheter removed. 12:27:17 A MULTIPACK 3DRC 5Fr catheter was advanced over the wire and used for Procedure. 12:28:10 RCA angiography performed. 12::13 Catheter removed. 12::20 A MULTIPACK Pigtail 5 Fr catheter was advanced over the wire and used for Ventriculography. 12::23 LV gram done using ALBA 12::29 EF : 55 % 12:28:31 EXOSEAL 5Fr (EX500) opened to sterile field. 12::32 Tegaderm 4 x 4 (1626W) opened to sterile field. 12:30:19 Catheter removed. 12:30:30 Sheath removed intact; hemostasis achieved with Exoseal to the Right Femoral artery. 12:30:33 Procedure ended.(Physican Out) 12::48 Fluoroscopy time 00.90 minutes. 12::55 Fluoroscopy dose: 333 mGy 12::55 Flurop Dose total: 333 12:31: Dose Area Product 43242 mGy/cm. 12:31:08 Contrast amount:Isovue 300 62ml. 12:31:12 Insertion/operative site no bleeding no hematoma. 12:31:16 Post-op/insertion site Right Femoral artery dressed using a 4 x 4 and Tegaderm. 12:31:28 Post right femoral artery:stable 12::30 Post Procedure Pulses reassessed and unchanged 12::33 Post-procedure physical assessment completed. ASA score P 2 - A patient with mild systemic disease as per Jose Messina MD. 12:31:36 Post procedure rhythm: unchanged. 12:31:40 Estimated blood loss: 10 ml 12:31:48 Post procedure instruction explained to patient.Patient verbalizes understanding. 12:32:36 Procedure and supply charges have been captured, reviewed, submitted and are correct. 12:32:55 Procedure Complication : No complications 12:32:58 Vital chart was stopped 12:33:00 [facility] Findings: mild to moderate CAD (<70%) 12:33:03 Report given to Pre/Post Procedure Room. 12:33:06 Patient transfered to Pre/Post Procedure Room with Stretcher. 12:33:08 Procedure ended. 12:33:08 Full Disclosure recording stopped 12:33:20 End room use (Document Last) 12:35:09 End room use (Document Last) Device Usage Item Name Manufacture Quantity Catalog Hospital Part Current Minimal L ot# / Number Charge Number Stock Stock Serial# Code ACIST Acist 1 55946 095720 517800 271750 20 Syringe Medical (93609) Systems Inc Bag Microtek 1 198385 02204 411459 5 Decanter Medical Inc. () Medline Medline 1 [id number] 085282 40151 791543 5 Cath Pack ([id number]) ACIST Hand Acist 1 94859 875294 985514 682287 5 Control Medical (94778) Systems Inc ACIST Acist 1 50912 264971 404589 297206 5 Manifold Medical (49060) Systems Inc DIAGNOSTIC Cardinal 1 [id number] 036169 61007 038196 30 Multipack Conspire 5Fr catheter set (UB1919) SHEATH 5FR Terumo 1 [id number] 007498 814359 512536 5 [place] (QQE677) EMERALD Cardinal 1 502-455 415445 897746 074569 5 Guide Wire Conspire ([id number]) MULTIPACK Cardinal 1 667324 5 JL 4.0 5Fr Health catheter MULTIPACK Cardinal 1 [id number] 5 3DRC 5Fr Health catheter MULTIPACK Cardinal 1 199728 5 Pigtail 5 Health Fr catheter EXOSEAL 5Fr Cardinal 1 EX500 303073 481735 [id number] 10 (EX500) Health Tegaderm 4 3M 1 1626W 363421 301678 144066 5 x 4 (1626W) Signature Audit [place] Stage Time Signature Unsigned Intra-Procedure 10/11/2020 Monisha Bernal 12:35:09 PM RT(R) Intra-Procedure 10/11/2020 Senthil Gill RN 12:35:35 PM Intra-Procedure 10/11/2020 Jose Mathias 12:35:51 PM Arden [place] [id number] [place] [address]
[~2020-10-11 00:18] MED LIST changes: +PREDNISONE20 MG PO; -REQUIP1 MG PO; +ROPINIROLE HCL2 MG PO
[2020-10-11 01:00] LABS: BASOPHILS 0.1 % (0-2); EOSINOPHILS 1.8 % (0-7); HEMATOCRIT 36.8 % (36.0-48.0); HEMOGLOBIN 12.4 g/dL (12-16); IMMATURE GRANULOCYTES 0.2 % (0-5); LYMPHOCYTE ABS# 2.41 10x3/uL (1.18-3.74); LYMPHOCYTES 28.4 % (15-50); MCH 31.2 pg (26.0-34.0); MCHC 33.7 g/dL (31.0-37.0); MCV 92.5 fL (80.0-100.0); MEAN PLATELET VOLUME 10.9 fL (7.4-10.4); MONOCYTES 8.8 % (2-11); NEUTROPHIL ABS# 5.15 10x3/uL (1.56-6.13); NEUTROPHILS 60.7 % (40-80); PLATELET COUNT 193 10x3/uL (130-400); RBC 3.98 10x6/uL (4.00-5.40); RDW 14.3 % (11.5-14.5); WBC 8.5 10x3/uL (4.8-10.8)
[2020-10-11 01:11] LABS: CALC OSMOLALITY 291 mosm/kg (275-300); CALCIUM 8.6 mg/dL (8.5-10.1); CARBON DIOXIDE 22.7 mmol/L (21.0-32.0); CHLORIDE - SERUM 104 mmol/L (98-107); CREATININE - SERUM 0.9 mg/dL (0.6-1.3); GLUCOSE 316 mg/dL (74-106); POTASSIUM - SERUM 3.7 mmol/L (3.5-5.1); SODIUM 140 mmol/L (136-145); UREA NITROGEN 14 mg/dL (7-18); eGFR NON AFRICAN AMERICAN 68 mL/min (90-120)
[2020-10-11 01:14] LABS: APTT 28.6 SECONDS (22.8-39.4); INR 1.29 (0.85-1.17); PROTIME 14.9 SECONDS (11.6-15.0)
[2020-10-11 01:30] LABS: ALBUMIN 3.3 g/dL (3.4-5.0); ALKALINE PHOSPHATASE 101 U/L (30-120); ALT (SGPT) 44 U/L (10-68); BILIRUBIN - TOTAL 0.12 mg/dL (0.2-1.3); CKMB 0.6 U/L (0.0-3.6); CREATINE KINASE 55 UL (21-215); MAGNESIUM - SERUM 1.8 mg/dL (1.8-2.4); PROTEIN - SERUM 6.8 g/dL (6.4-8.2); TROPONIN-I < 0.017 ng/mL (0.000-0.060)
[2020-10-11 01:31] VITALS: BP 114/59
[2020-10-11] MEDS ORDERED: ELIQUIS5 MG PO (02:25)
[2020-10-11] MEDS ORDERED: NORVASC5 MG PO (02:25)
[2020-10-11] MEDS ORDERED: HYDROCODON-ACE1 EA10 PO (02:26)
[2020-10-11] MEDS ORDERED: LIPITOR10 MG PO (02:26)
[2020-10-11] MEDS ORDERED: ISOSORBIDE MONO60 M1 PO (02:27)
[2020-10-11 03:35] VITALS: BP 149/75; BMI 29.6
--- NOTE | 2020-10-11 04:34 | NUR ---
0315-- PT TO ROOM FROM ER PER WHEELCHAIR W/ ER NURSE. PT UP IN ROOM UPON MY ARRIVAL. C/O SEVERE CHEST PAIN THAT RADIATES UP HER LEFT NECK & FEELS LIKE SOMEONE IS PINCHING HER. MILD DYSPNEA WHEN UP TO BATHROOM. REINFORCED NPO STATUS UNTIL CARDIOLOGY SEES HER. HEPLOCK TO RIGHT AC SPACE TELEMETRY ON/WORKING SCD'S IN ROOM BUT PT UP& DOWN FREQUENTLY TO BATHROOM HOME MED LIST UPDATED ALONG WITH ALLERGIES. REQUESTING PAIN MEDS CHRISTOPHER.
[2020-10-11 05:18] VITALS: BP 124/57
--- NOTE | 2020-10-11 07:05 | NUR ---
PT LYING IN BED WITH EYES CLOSED. RAISES EASILY TO VERBAL STIMULI. RESP EVEN AND UNLABORED. AAO X4. DENIES NEEDS AT THIS TIME. CLIR. BED IN LOWEST POSITION. SIDE RAILS X2
[2020-10-11 07:36] LABS: PRO BNP 18 pg/mL (0-125); TROPONIN-I < 0.017 ng/mL (0.000-0.060)
[2020-10-11 07:38] LABS: BACTERIA MODERATE HPF (NONE SEEN); BILIRUBIN NEGATIVE (NEGATIVE); KETONE NEGATIVE (NEGATIVE); NITRITE POSITIVE (NEGATIVE); UROBILINOGEN NORMAL mg/dL (< 2)
[2020-10-11 08:27] VITALS: BP 145/74
[2020-10-11 09:35] LABS: ALT (SGPT) 42 U/L (10-68); CALC OSMOLALITY 291 mosm/kg (275-300); CALCIUM 8.8 mg/dL (8.5-10.1); CARBON DIOXIDE 23.2 mmol/L (21.0-32.0); CHLORIDE - SERUM 106 mmol/L (98-107); CHOL - HDL RATIO 2.7 ratio (2.3-4.1); CHOLESTEROL, TOTAL 169 mg/dL (0-200); CREATININE - SERUM 0.7 mg/dL (0.6-1.3); GLUCOSE 276 mg/dL (74-106); HDL CHOLESTEROL 62 mg/dL (32-96); LDL CHOLESTEROL 88 mg/dL (0-100); LDL-HDL RATIO 1.4 ratio (1.5-3.5); POTASSIUM - SERUM 3.9 mmol/L (3.5-5.1); SODIUM 141 mmol/L (136-145); TRIGLYCERIDE 98 mg/dL (30-200); UREA NITROGEN 15 mg/dL (7-18); eGFR NON AFRICAN AMERICAN > 90 mL/min (90-120)
[2020-10-11 11:00] VITALS: BP 123/64
--- NOTE | 2020-10-11 11:39 | NUR ---
PT'S BELONGINGS SEALED AND SENT TO [facility]
--- NOTE | 2020-10-11 11:57 | NUR ---
PT LEFT UNIT FOR PROCEDURE. ACCOMPANIED BY HOSPITAL STAFF
--- NOTE | 2020-10-11 12:50 | NUR ---
PT RETURNED TO UNIT. DRESSING TO RIGHT GROIN C/D/I. BILATERAL PEDAL PULSES PALPABLE. NO HARDNESS OR BRUISING NOTED. 2 LPM VIA NC IN PLACE. CLIR. BED IN LOWEST POSITION. SIDE RAILS X2. INSTRUCTED TO LIE FLAT AND NOT GET UP FOR 2 HOURS
[2020-10-11 12:57] VITALS: Ht 165.1 cm; Wt 80.7 kg
--- NOTE | 2020-10-11 15:43 | NUR ---
I have reviewed this patient and I concur with the Shift Assessment completed by the Licensed Practical Nurse today this shift.
--- NOTE | 2020-10-11 21:58 | NUR ---
1929--PT DAUGHTER HERE TO TRANSPORT HOME. PT REQUESTING TO HAVE DEMEROL PRIOR TO DC. INFORMED CLT/FAMILY THAT SHE WOULD HAVE TO BE MONITORED FOR AT LEAST 1-1 1/2 HOURS AFTER ADMINISTRATION. AGREES TO BE MONITORED. MEDICATION GIVEN FOR CONT C/O CHEST/NECK/SHOULDER PAIN.
--- NOTE | 2020-10-11 22:01 | NUR ---
2100-- PT IV REMOVED WITH CATHETER INTACT, SITE COVERED WITH 2X2 & SECURED WITH TAPE AFTER PRESSURE APPLIED. TOLERATED WELL. WHEELED OUT TO PRIVATE VEHICLE WITH PERSONAL BELONGINGS. WISHED WELL.
== END 2020-10-11 21:00 | disposition home or self-care (01) ==
LOC: D.ER 00:18 → D.M2 02:08 → OBSVTIME 02:09 → D.M2 21:00
PROVIDERS: Family Medicine; Internal Medicine Interventional Cardiology; ADMIT Emergency Medicine; ATTEND Emergency Medicine
DX: I20.0 Unstable angina (principal); R07.9 Chest pain, unspecified; I10 Essential (primary) hypertension; E78.5 Hyperlipidemia, unspecified; J44.9 Chronic obstructive pulmonary disease, unspecified; Z79.84 Long term (current) use of oral hypoglycemic drugs; E11.65 Type 2 diabetes mellitus with hyperglycemia; F17.213 Nicotine dependence, cigarettes, with withdrawal; Z79.01 Long term (current) use of anticoagulants; Z85.72 Personal history of non-Hodgkin lymphomas; F41.9 Anxiety disorder, unspecified; K21.9 Gastro-esophageal reflux disease without esophagitis